=== PATIENT | male | born 1965 | race Caucasian/White ===

== ENCOUNTER 2022-05-26 11:13 | Outpatient (CLI) | payer MEDICARE, MEDICAID, SELFPAY | END 2022-05-26 11:14 | disposition home or self-care (01) | LOC: AMB 06-19 11:40 | PROVIDERS: PCP Family Medicine; Visit Provider Family Medicine | DX: R50.9 Fever, unspecified (principal); R52 Pain, unspecified | CPT/HCPCS: A0998 ==

== ENCOUNTER 2022-05-26 15:08 | Outpatient (CLI) | payer MEDICARE, MEDICAID, SELFPAY | END 2022-05-26 15:09 | disposition home or self-care (01) | PROVIDERS: PCP Family Medicine; Visit Provider Family Medicine | DX: R50.9 Fever, unspecified (principal) | CPT/HCPCS: A0425; A0429; A0998 ==

== ENCOUNTER 2022-05-26 15:29 | Inpatient (IN) | payer MEDICARE, MEDICAID, SELFPAY ==
[2022-05-26] VITALS (15 sets, daily range): BP systolic 103–135; BP diastolic 59–84; PULSE 98–136; RESP 12–24; TEMP 37.6–39.2; O2SAT 88–96; BMI 55.6; BMI 56.1
--- NOTE | 2022-05-26 16:03 | ED.GENADULT ---
HPI - General Adult General Time Seen by Provider: 16:04 Date Seen: 05/26/22 Chief complaint: Fever Stated complaint: FEVER Time Seen by Provider: 05/26/22 15:42 Source: patient Mode of arrival: EMS Limitations: no limitations History of Present Illness HPI narrative: This 57-year-old male is a well-known patient to us coming in with fever today. Vi notes that he woke up this morning feeling extremely chilled, checked his temperature later and it was in the low 103 range. Did take some Tylenol around 11. Did have the EMT come check him and initially did not come in but later did. He started feeling really hot early afternoon and recheck his temperature and it was 104.1. He notes that he did choke on some peanut scans. It was not a Pean it but it was actually the skin. He is chronically trached and he did put saline in his trach and rinse it. He is not coughing, not short of breath. He notes he was on antibiotics about a week and a half ago for UTI a with his urine showing greater than 100,000 of some type of bacteria. He does feel his urine might be cloudy. No sore throat, no abdominal pain, no nausea vomiting, no diarrhea. He is not noting any respiratory symptoms at this time. It is not aware of any definite ill contacts but did go to [facility]. He has felt weak today with these symptoms. Vi does have a history of congestive heart failure. MD complaint: Fever and weakness Related Data Home Medications Medication Instructions Recorded Confirmed cyanocobalamin (vitamin B-12) 1,000 mcg IM Q4W 05/26/22 05/26/22 1,000 mcg/mL injection solution fluticasone propionate 50 2 spray intranasal DAILY 05/26/22 05/26/22 mcg/actuation nasal spray,suspension lamotrigine 200 mg tablet 200 mg PO HS 05/26/22 05/26/22 metronidazole 0.75 % topical cream 1 applic topical BID 05/26/22 05/27/22 morphine 30 mg immediate release 30 mg PO Q6H PRN 05/26/22 05/26/22 tablet nystatin 100,000 unit/gram topical 1 applic topical BID 05/26/22 05/26/22 cream pregabalin 75 mg capsule 75 mg PO BID 05/26/22 05/26/22 quetiapine 100 mg tablet 200 mg PO HS 05/26/22 05/26/22 sertraline 50 mg tablet 150 mg PO DAILY 05/26/22 05/26/22 tizanidine 2 mg tablet 2 - 4 mg PO Q8H PRN 05/26/22 05/26/22 trazodone 100 mg tablet 200 mg PO HS 05/26/22 05/26/22 ciprofloxacin 0.3 %-dexamethasone See Rx Instructions .Route .COMPLEX 05/27/22 05/27/22 0.1 % ear drops,suspension ondansetron 4 mg disintegrating 4 mg PO Q8H PRN 05/27/22 05/27/22 tablet Allergies Allergy/AdvReac Type Severity Reaction Status Date / Time latex Allergy Verified 05/26/22 15:41 aspirin AdvReac Verified 05/26/22 15:41 codeine AdvReac Verified 05/26/22 15:41 Review of Systems Status of ROS: Reports: 10 or more systems reviewed and unremarkable except as noted in History and below [facility] Medical History Anemia Bipolar disorder Borderline personality disorder in adult Chronic idiopathic thrombocytopenia Chronic idiopathic thrombocytopenia Chronic pain Chronic pain syndrome CVA (cerebral vascular accident) Diabetes Fever History of deep venous thrombosis or pulmonary embolus History of suicide attempt Iron deficiency anemia following bariatric surgery Migraine Migraines Obesity RAPHAEL (obstructive sleep apnea) Pulmonary embolism Suprapubic catheter Surgical History Gastric bypass status for obesity History of cholecystectomy History of lumbar surgery History of total right knee replacement (TKR) S/P ACL repair Family History Other Chronic idiopathic thrombocytopenia Social History Smoking Status: Former smoker What tobacco products do you use: cigarettes Years smoked: 10 Smoking quit date/years: <= 15 years ago Do you use any of these nicotine containing products: None Second hand tobacco smoke exposure: No How often do you have a drink containing alcohol: 2-4 times a month How many standard drinks containing alcohol do you have on a typical day: 1 or 2 How often do you have six or more drinks on one occasion: Never AUDIT-C Alcohol total score: 2 Non-prescribed substance use: denies use Caffeine: Yes (coffee) service: No Exam Const: Vital Signs, click to edit/add: Vital Signs - 24 hr 05/26/22 15:41 05/26/22 15:53 05/26/22 17:18 Temperature 99.7 F H Pulse Rate [Apical ] 113 H Respiratory Rate 22 Blood Pressure [Ri ght Forearm] 109/59 L Pulse Oximetry 94 94 93 Oxygen Delivery Me thod Room Air Room Air 05/26/22 15:40 05/26/22 16:00 05/26/22 17:00 Temperature Pulse Rate [Apical ] 111 H 114 H 107 H Respiratory Rate 14 15 Blood Pressure [Ri ght Forearm] 109/59 L 105/74 Pulse Oximetry 93 93 Oxygen Delivery Me thod Room Air Room Air 05/26/22 17:30 05/26/22 18:00 05/26/22 18:30 Temperature Pulse Rate [Apical ] 105 H 107 H 107 H Respiratory Rate 15 Blood Pressure [Ri ght Forearm] 103/71 104/69 107/73 Pulse Oximetry 93 92 93 Oxygen Delivery Me thod Room Air Room Air Room Air 05/26/22 19:00 Temperature Pulse Rate [Apical ] 100 Respiratory Rate 12 Blood Pressure [Ri ght Forearm] 128/76 Pulse Oximetry 94 Oxygen Delivery Me thod Room Air Documenting provider has reviewed patient's vital signs: yes Common normals: no apparent distress, oriented x3, no limitations, healthy appearing, alert and well nourished General appearance: cooperative, comfortable and well kempt Nutritional appearance: obese HENMT: Common normals: normocephalic, head/scalp atraumatic, hearing grossly normal bilaterally, external ears normal, EAC's normal, nasal mucous membranes and turbinates normal, moist oral mucous membranes, oropharynx normal, dentition normal and gingiva normal Head and scalp: normocephalic and atraumatic Nose: nasal mucous membranes and turbinates normal External ear: external ears normal External auditory canal: EAC's normal Eye: Common normals: PERRL, EOMs intact bilaterally, conjunctivae normal and no scleral icterus Conjunctiva: conjunctiva(e) normal Pupil: PERRL Neck & C-Spine: Common normals: full ROM, no lymphadenopathy, supple, no meningeal signs, no JVD and thyroid normal Thyroid: thyroid normal Other: Trach is in place, no sputum production, site without any evidence of infection. Chest: Common normals: inspection of chest normal and palpation of chest normal Resp: Common normals: normal respiratory effort, no retractions, no use of accessory muscles and clear to auscultation bilaterally Auscultation: clear to auscultation bilaterally Cardio: Common normals: no JVD, regular rhythm, S1 normal heart sound, S2 normal heart sound, no gallops, no clicks, no murmurs and no rub Rate: tachycardic Rhythm: regular rhythm Heart sounds: S1 normal and S2 normal GI: Common normals: Normal to inspection, nondistended, normoactive bowel sounds present, soft to palpation and non-tender Palpation: soft Other: Abdomen certainly is not tender, he does have a suprapubic catheter. Body habitus precludes any definite ability for palpating masses or organomegaly. 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 Chronic edema that looks baseline to me from my previous interactions with him. Neuro: Common normals: oriented x3, CN's II-XII intact bilaterally, moves all extremities, no focal motor deficits and no sensory deficits noted Sensorium/orientation: alert Meningeal signs: no meningeal signs Psych: Appearance: well kempt Course Course Hospital Course: We need to work up this patient for infection. We will do blood cultures. He is mildly tachycardic, will need to look back at prior vitals to see what his baseline has been most recently. He actually is alert and quite conversive. He looks well. We will get a chest x-ray to start, will do screening COVID and influenza as well. Given his history of fluid overload, will do fluids very carefully. Will give him a 250 mL normal saline bolus to start and will obtain a baseline proBNP. Right now respiratory verses urinary arm I most likely etiologies for fever. Certainly COVID is always a possibility. Reevaluation(s) Reevaluation #1: Patient was re-evaluated, tolerated the initial 250 mL bolus just fine, blood pressure does continue to stay around systolic 107 when I was in there but his heart rate is coming down. In review of his old records, in November his blood pressure was 1 17-137 range, pulse in the 80s. He was able to pull up his my chart and on May 02 he had a urine culture growing Enterococcus faecalis. I cannot see the sensitivities but I can see that his doctor did place him on amoxicillin which he states he took for a week. Urine definitely looks like it could be a source of infection, I am going to give him IV Rocephin and initiate another 250 mL fluid bolus of normal saline. Given his reported fevers, his change in his vital signs on arrival here, do feel it is prudent to place him in the hospital on observation. I will talk to the hospitalist once I have all of his labs back. Time: 18:47 Reevaluation #2: Have spoken with Dr. Zhao our hospitalist. He agrees to assume care. Time: 18:53 Vital Signs Vital signs: Initial Vital Signs Pulse Rate 111 H 05/26/22 15:40 Pulse Rhythm 05/26/22 15:40 Respiratory Rate 14 05/26/22 15:40 Respiratory Effort Spontaneous 05/26/22 15:40 Respiratory Depth Normal 05/26/22 15:40 Respiratory Pattern 05/26/22 15:40 Blood Pressure 109/59 L 05/26/22 15:40 Blood Pressure Mean 75 05/26/22 15:40 Blood Pressure Position Supine 05/26/22 15:40 Pulse Oximetry 93 05/26/22 15:40 Oxygen Delivery Method 05/26/22 15:40 Vital Signs Pulse Rate 111 H 05/26/22 15:40 Respiratory Rate 14 05/26/22 15:40 Blood Pressure 109/59 L 05/26/22 15:40 Pulse Oximetry 93 05/26/22 15:40 Oxygen Delivery Method 05/26/22 15:40 Temperature 98.5 F 05/29/22 07:00 Pulse Rate 98 05/29/22 07:00 Respiratory Rate 20 05/29/22 07:00 Blood Pressure 139/74 05/29/22 07:00 Pulse Oximetry 98 05/29/22 07:00 Oxygen Delivery Method 05/29/22 07:00 Oxygen Flow Rate 3 05/29/22 03:00 Medical Decision Making Lab Data Lab results reviewed: Yes I reviewed the patient's lab results Labs: Lab Results 05/26/22 05/26/22 05/26/22 Range/Units 16:45 16:55 17:10 WBC 7.66 (4.50-11.00) K/uL RBC 4.56 (4.30-5.90) m/uL Hgb 10.1 L (13.5-17.5) gm/dL Hct 33.5 L (37.0-53.0) % MCV 74 L (80-100) fL MCH 22 L (26-34) pg MCHC 30 L (32-36) gm/dL RDW Coeff of Verenice 18.3 H (11.5-15.5) % Plt Count 86 L (140-440) K/uL Neut % (Auto) 81.2 H (42.0-72.0) % Lymph % (Auto) 7.3 L (20-44) % [place] % (Auto) 10.2 (0.0-11.0) % Eos % (Auto) 0.5 (0.0-7.0) % Baso % (Auto) 0.3 (0.0-3.0) % Neut # (Auto) 6.20 (1.7-7.0) K/uL Lymph # (Auto) 0.60 L (0.90-2.90) K/uL [place] # (Auto) 0.80 (0.00-0.90) K/UL Eos # (Auto) 0.04 (0.00-0.50) K/uL Baso # (Auto) 0.02 (0.00-0.30) K/uL Abs Immat Gran (auto) 0.04 (0.00-0.30) K/uL Diff Slide Review (Acceptable) ESR (2-15) mm/hr INR (0.91-1.10) Sodium (135-149) mmol/L Potassium (3.6-5.1) mmol/L Chloride (96-114) mmol/L Carbon Dioxide (20-32) mmol/L BUN (7-30) mg/dL Creatinine (0.5-1.5) mg/dL Estimated Creat Clear Estimated GFR ml/min Glucose (60-115) mg/dL Lactate (0.5-1.9) mmol/L Calcium (8.4-10.6) mg/dL Magnesium (1.5-2.6) mg/dL Total Bilirubin (0.1-1.5) mg/dL AST (12-35) U/L ALT (4-50) U/L Alkaline Phosphatase (40-150) U/L C-Reactive Protein (0.5-1.0) mg/dL NT-Pro-B Natriuret Pep (0-125) PG/mL Total Protein (6.0-8.3) g/dL Albumin (3.3-5.0) g/dL Procalcitonin (<0.50) ng/mL Urine Color Yellow (Yellow) Urine Appearance Cloudy A (Clear) Urine pH 6.0 (5.0-8.5) Ur Specific [place] 1.010 (1.000-1.030) Urine Protein 1+ A (Negative) Urine Glucose (UA) Negative (Negative) Urine Ketones Negative (Negative) Urine Blood 2+ A (Negative) Urine Nitrite Positive A (Negative) Urine Bilirubin Negative (Negative) Urine Urobilinogen 1.0 (0.2-1.0) Ur Leukocyte Esterase 3+ A (Negative) Urine RBC 10-25 A (0-2) Urine WBC >100 A (0-5) Ur Squamous Epith Cells None (None-Few) Amorphous Sediment Few A (None) Other Sediment MANY YEAST (None) Urine Bacteria Many A (None) Urine Yeast Many A (None) SARS-CoV-2 (PCR) Negative SARS-CoV-2 (Negative) Influenza Type A (PCR) Negative PCR FLU A (Negative) Influenza Type B (PCR) Negative PCR FLU B (Negative) 05/26/22 05/26/22 05/26/22 Range/Units 17:10 17:10 17:10 WBC (4.50-11.00) K/uL RBC (4.30-5.90) m/uL Hgb (13.5-17.5) gm/dL Hct (37.0-53.0) % MCV (80-100) fL MCH (26-34) pg MCHC (32-36) gm/dL RDW Coeff of Verenice (11.5-15.5) % Plt Count (140-440) K/uL Neut % (Auto) (42.0-72.0) % Lymph % (Auto) (20-44) % [place] % (Auto) (0.0-11.0) % Eos % (Auto) (0.0-7.0) % Baso % (Auto) (0.0-3.0) % Neut # (Auto) (1.7-7.0) K/uL Lymph # (Auto) (0.90-2.90) K/uL [place] # (Auto) (0.00-0.90) K/UL Eos # (Auto) (0.00-0.50) K/uL Baso # (Auto) (0.00-0.30) K/uL Abs Immat Gran (auto) (0.00-0.30) K/uL Diff Slide Review (Acceptable) ESR 29 H (2-15) mm/hr INR 1.26 H (0.91-1.10) Sodium 136 (135-149) mmol/L Potassium 3.6 (3.6-5.1) mmol/L Chloride 104 (96-114) mmol/L Carbon Dioxide 24 (20-32) mmol/L BUN 9 (7-30) mg/dL Creatinine 0.7 (0.5-1.5) mg/dL Estimated Creat Clear 129.33 Estimated GFR 108 ml/min Glucose 213 H (60-115) mg/dL Lactate (0.5-1.9) mmol/L Calcium 8.6 (8.4-10.6) mg/dL Magnesium (1.5-2.6) mg/dL Total Bilirubin 0.5 (0.1-1.5) mg/dL AST 38 H (12-35) U/L ALT 29 (4-50) U/L Alkaline Phosphatase 129 (40-150) U/L C-Reactive Protein 2.9 H (0.5-1.0) mg/dL NT-Pro-B Natriuret Pep (0-125) PG/mL Total Protein 6.9 (6.0-8.3) g/dL Albumin 3.5 (3.3-5.0) g/dL Procalcitonin (<0.50) ng/mL Urine Color (Yellow) Urine Appearance (Clear) Urine pH (5.0-8.5) Ur Specific [place] (1.000-1.030) Urine Protein (Negative) Urine Glucose (UA) (Negative) Urine Ketones (Negative) Urine Blood (Negative) Urine Nitrite (Negative) Urine Bilirubin (Negative) Urine Urobilinogen (0.2-1.0) Ur Leukocyte Esterase (Negative) Urine RBC (0-2) Urine WBC (0-5) Ur Squamous Epith Cells (None-Few) Amorphous Sediment (None) Other Sediment (None) Urine Bacteria (None) Urine Yeast (None) SARS-CoV-2 (PCR) (Negative) Influenza Type A (PCR) (Negative) Influenza Type B (PCR) (Negative) 05/26/22 05/26/22 05/27/22 Range/Units 17:10 17:10 06:15 WBC 9.32 (4.50-11.00) K/uL RBC 4.10 L (4.30-5.90) m/uL Hgb 9.1 L (13.5-17.5) gm/dL Hct 30.9 L (37.0-53.0) % MCV 75 L (80-100) fL MCH 22 L (26-34) pg MCHC 29 L (32-36) gm/dL RDW Coeff of Verenice 18.4 H (11.5-15.5) % Plt Count 71 L (140-440) K/uL Neut % (Auto) 83.5 H (42.0-72.0) % Lymph % (Auto) 4.2 L (20-44) % [place] % (Auto) 11.8 H (0.0-11.0) % Eos % (Auto) 0.1 (0.0-7.0) % Baso % (Auto) 0.1 (0.0-3.0) % Neut # (Auto) 7.80 H (1.7-7.0) K/uL Lymph # (Auto) 0.40 L (0.90-2.90) K/uL [place] # (Auto) 1.10 H (0.00-0.90) K/UL Eos # (Auto) 0.01 (0.00-0.50) K/uL Baso # (Auto) 0.01 (0.00-0.30) K/uL Abs Immat Gran (auto) 0.03 (0.00-0.30) K/uL Diff Slide Review Acceptable Review (Acceptable) ESR (2-15) mm/hr INR (0.91-1.10) Sodium (135-149) mmol/L Potassium (3.6-5.1) mmol/L Chloride (96-114) mmol/L Carbon Dioxide (20-32) mmol/L BUN (7-30) mg/dL Creatinine (0.5-1.5) mg/dL Estimated Creat Clear Estimated GFR ml/min Glucose (60-115) mg/dL Lactate 1.9 (0.5-1.9) mmol/L Calcium (8.4-10.6) mg/dL Magnesium (1.5-2.6) mg/dL Total Bilirubin (0.1-1.5) mg/dL AST (12-35) U/L ALT (4-50) U/L Alkaline Phosphatase (40-150) U/L C-Reactive Protein (0.5-1.0) mg/dL NT-Pro-B Natriuret Pep 135 H (0-125) PG/mL Total Protein (6.0-8.3) g/dL Albumin (3.3-5.0) g/dL Procalcitonin 2.71 H (<0.50) ng/mL Urine Color (Yellow) Urine Appearance (Clear) Urine pH (5.0-8.5) Ur Specific [place] (1.000-1.030) Urine Protein (Negative) Urine Glucose (UA) (Negative) Urine Ketones (Negative) Urine Blood (Negative) Urine Nitrite (Negative) Urine Bilirubin (Negative) Urine Urobilinogen (0.2-1.0) Ur Leukocyte Esterase (Negative) Urine RBC (0-2) Urine WBC (0-5) Ur Squamous Epith Cells (None-Few) Amorphous Sediment (None) Other Sediment (None) Urine Bacteria (None) Urine Yeast (None) SARS-CoV-2 (PCR) (Negative) Influenza Type A (PCR) (Negative) Influenza Type B (PCR) (Negative) 05/27/22 Range/Units 06:15 WBC (4.50-11.00) K/uL RBC (4.30-5.90) m/uL Hgb (13.5-17.5) gm/dL Hct (37.0-53.0) % MCV (80-100) fL MCH (26-34) pg MCHC (32-36) gm/dL RDW Coeff of Verenice (11.5-15.5) % Plt Count (140-440) K/uL Neut % (Auto) (42.0-72.0) % Lymph % (Auto) (20-44) % [place] % (Auto) (0.0-11.0) % Eos % (Auto) (0.0-7.0) % Baso % (Auto) (0.0-3.0) % Neut # (Auto) (1.7-7.0) K/uL Lymph # (Auto) (0.90-2.90) K/uL [place] # (Auto) (0.00-0.90) K/UL Eos # (Auto) (0.00-0.50) K/uL Baso # (Auto) (0.00-0.30) K/uL Abs Immat Gran (auto) (0.00-0.30) K/uL Diff Slide Review (Acceptable) ESR (2-15) mm/hr INR (0.91-1.10) Sodium 136 (135-149) mmol/L Potassium 3.5 L (3.6-5.1) mmol/L Chloride 105 (96-114) mmol/L Carbon Dioxide 23 (20-32) mmol/L BUN 12 (7-30) mg/dL Creatinine 1.2 (0.5-1.5) mg/dL Estimated Creat Clear 73.21 Estimated GFR 71 ml/min Glucose 190 H (60-115) mg/dL Lactate (0.5-1.9) mmol/L Calcium 7.7 L (8.4-10.6) mg/dL Magnesium 1.6 (1.5-2.6) mg/dL Total Bilirubin (0.1-1.5) mg/dL AST (12-35) U/L ALT (4-50) U/L Alkaline Phosphatase (40-150) U/L C-Reactive Protein 5.5 H (0.5-1.0) mg/dL NT-Pro-B Natriuret Pep (0-125) PG/mL Total Protein (6.0-8.3) g/dL Albumin (3.3-5.0) g/dL Procalcitonin 13.40 H (<0.50) ng/mL Urine Color (Yellow) Urine Appearance (Clear) Urine pH (5.0-8.5) Ur Specific [place] (1.000-1.030) Urine Protein (Negative) Urine Glucose (UA) (Negative) Urine Ketones (Negative) Urine Blood (Negative) Urine Nitrite (Negative) Urine Bilirubin (Negative) Urine Urobilinogen (0.2-1.0) Ur Leukocyte Esterase (Negative) Urine RBC (0-2) Urine WBC (0-5) Ur Squamous Epith Cells (None-Few) Amorphous Sediment (None) Other Sediment (None) Urine Bacteria (None) Urine Yeast (None) SARS-CoV-2 (PCR) (Negative) Influenza Type A (PCR) (Negative) Influenza Type B (PCR) (Negative) Imaging Data Chest x-ray: Attestation: I have reviewed the pertinent imaging results. Radiologist's impression: Patient: GETACHEW GIBBS Facility:?[facility] Patient ID:?[id number] Site Patient ID:?[id number]. Site :?[id number] Study:?XRay Chest 2 VIEW-05/26/2022 4:37:12 PM Ordering Physician:Claudia Willoughby Final Report: INDICATION: Fever, question aspiration. TECHNIQUE: AP and lateral chest. COMPARISON: 11/17/2021. FINDINGS: Shallow inspiration. Tracheostomy tube and Port-A-Cath in place. Lungs grossly clear. No significant change since prior exam. No specific evidence for aspiration. Dictated by Zia Diaz MD @ 05/26/2022 5:14:57 PM Dictated by: Zia Diaz MD @ 05/26/2022 17:15:01 (Electronic Signature) ECG Data Attestation: I personally reviewed and interpreted this ECG as follows: (Sinus tachycardia, 113 beats per minute. No acute ischemic change noted.) Prior ECG tracings: not available for review Critical Care Time Critical Care Time Critical Care Time: No Discharge Plan Discharge Clinical Impression: Chronic suprapubic catheter, Fever, Sinus tachycardia, Acute UTI Patient Disposition: Admitted As Inpatient Condition: Improved
--- NOTE | 2022-05-26 16:16 | CRLHL7_ITS ---
For Patients: As a result of the Cures Act, medical imaging exams and procedure reports are released immediately into your electronic medical record. You may view this report before your referring provider. If you have questions, please contact your health care provider. INDICATION: Fever, question aspiration. TECHNIQUE: AP and lateral chest. COMPARISON: 11/17/2021. FINDINGS: Shallow inspiration. Tracheostomy tube and Port-A-Cath in place. Lungs grossly clear. No significant change since prior exam. No specific evidence for aspiration. Dictated by Zia Diaz MD @ 05/26/2022 5:14:57 PM Dictated by: Zia Diaz MD @ 05/26/2022 17:15:01 (Electronically Signed)
[2022-05-26 17:02] LABS: Appearance Urine Cloudy (Clear); Bilirubin Urine Negative (Negative); Blood Urine 2+ (Negative); Color Urine Yellow (Yellow); Glucose Urine Negative (Negative); Ketones Urine Negative (Negative); Leukocyte Esterase Urine 3+ (Negative); Nitrite Urine Positive (Negative); Protein Urine 1+ (Negative)
[2022-05-26] MEDS: 0.9 % SODIUM CHLORIDE 250 ml 250 ML IV ×2 (17:14→19:06)
[2022-05-26 17:20] LABS: Lactate* 1.9 mmol/L (0.5-1.9)
[2022-05-26 17:26] LABS: WBC Urine >100 (0-5)
[2022-05-26 17:27] LABS: Amorphous Sediment Urine Few; Bacteria Urine Many; Other Sediment Urine MANY YEAST
[2022-05-26 17:35] LABS: Basophils Absolute Auto 0.02 K/uL (0.00-0.30); Basophils Percent Auto 0.3 % (0.0-3.0); Eosinophils Absolute Auto 0.04 K/uL (0.00-0.50); Eosinophils Percent Auto 0.5 % (0.0-7.0); Hematocrit 33.5 % (37.0-53.0); Hemoglobin* 10.1 gm/dL (13.5-17.5); Immature Granulocytes Abs Auto 0.04 K/uL (0.00-0.30); Lymphocytes Percent Auto 7.3 % (20-44); Mean Corpuscular HGB Conc 30 gm/dL (32-36); Mean Corpuscular Hemoglobin 22 pg (26-34); Mean Corpuscular Volume 74 fL (80-100); Monocytes Percent Auto 10.2 % (0.0-11.0); Neutrophils Percent Auto 81.2 % (42.0-72.0); Platelet Count* 86 K/uL (140-440); RDW Coefficient of Variation % 18.3 % (11.5-15.5); Red Blood Count 4.56 m/uL (4.30-5.90); White Blood Count* 7.66 K/uL (4.50-11.00)
[2022-05-26 17:35] LABS: PCR FLU A Negative PCR FLU A (Negative); PCR FLU B Negative PCR FLU B (Negative)
[2022-05-26 17:38] LABS: SARS PCR* Negative SARS-CoV-2 (Negative)
[2022-05-26 17:38] LABS: Slide Review Reflex No
[2022-05-26 17:41] LABS: Albumin* 3.5 g/dL (3.3-5.0); Chloride* 104 mmol/L (96-114); Sodium* 136 mmol/L (135-149)
[2022-05-26 17:42] LABS: INR 1.26 (0.91-1.10); Potassium* 3.6 mmol/L (3.6-5.1); Prothrombin Time 16.3 Seconds
[2022-05-26 17:45] LABS: Alanine Aminotransferase* 29 U/L (4-50); Alkaline Phosphatase* 129 U/L (40-150); Aspartate Amino Transferase* 38 U/L (12-35); Bilirubin Total* 0.5 mg/dL (0.1-1.5); Blood Urea Nitrogen* 9 mg/dL (7-30); Calcium* 8.6 mg/dL (8.4-10.6); Carbon Dioxide* 24 mmol/L (20-32); Creatinine* 0.7 mg/dL (0.5-1.5); Est. Creatinine Clearance* 129.33; Estimated Glomerular Filt Rate 108 ml/min; Glucose* 213 mg/dL (60-115); Total Protein* 6.9 g/dL (6.0-8.3)
[2022-05-26 17:47] LABS: C Reactive Protein* 2.9 mg/dL (0.5-1.0)
[2022-05-26] MEDS: MORPHINE 30 MG TABLET.ER PO (17:52)
[2022-05-26 17:54] LABS: NT Pro B Type NatriureticPept* 135 PG/mL (0-125)
[2022-05-26 18:02] LABS: Procalcitonin* 2.71 ng/mL (<0.50)
[2022-05-26 18:26] LABS: Erythrocyte SedimentationRate* 29 mm/hr (2-15)
[2022-05-26] MEDS: cefTRIAXone 2 GM in 0.9 % SODIUM CHLORIDE Mini-bag 100 ML IVPB (19:03)
--- NOTE | 2022-05-26 19:47 | ED.NURSE ---
pt requesting to talk to MD about admission, MD Estrada in with pt to talk. pt states he agrees to admission.
[2022-05-26] MEDS: ACETAMINOPHEN 500 MG TABLET 1000 MG PO ×2 (20:07→23:22)
--- NOTE | 2022-05-26 20:20 | ED.NURSE ---
report to media production support manager. pt to [facility]
--- NOTE | 2022-05-26 20:52 | P.IMHP_ITS ---
Hospitalist- H&P: HPI History of Present Illness Date Seen: 05/26/22 Chief complaint: FEVER Narrative: Gerson Perez III is a 57 year old male who had a minor coughing episode 2 days ago on the husk on a chocolate covered peanut that he bought at the [employer]. 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 No further problems unti the patient began feeling chilled this morning. He got temperatures between 101.5 and 102 at home. No chest pain, sob, cough, rash, abd pain, or change in his suprapubic catheter outpt. Pt had a UTI treated as an outpt approximately 2-3 weeks ago which was treated wtih amoxicillin. Pt presented to the ED where his pulse was initially 111 with a tempurature of 99.7. Pt was found to have a negative COVID test, negative chest x ray, WBC of 7.66 with Hgb of 10.1 and Plts of 86. Electrolytes were largely unremarkable with CRP of 2.9, BNP of 137 and Procalcitonin of 2.71. UA collected via catheter which was changed 17 days ago showed signs of infection. Blood and urine cultures were collected. Pt given normal saline, Rocephin and Tylenol and now feels fine. No further symptoms. Admitted to make sure that fever subsides and no further symptoms occur. Review of Systems Status of ROS: Reports: 10 or more systems reviewed and unremarkable except as noted in History and below [facility] Medical History (Updated 05/26/22 @ 21:22 by Hosea Zhao MD) Anemia Bipolar disorder Borderline personality disorder in adult Chronic idiopathic thrombocytopenia Chronic idiopathic thrombocytopenia Chronic pain Chronic pain syndrome CVA (cerebral vascular accident) Diabetes Fever History of deep venous thrombosis or pulmonary embolus History of suicide attempt Iron deficiency anemia following bariatric surgery Migraine Migraines Obesity RAPHAEL (obstructive sleep apnea) Pulmonary embolism Suprapubic catheter Surgical History (Updated 05/26/22 @ 21:10 by Hosea Zhao MD) Gastric bypass status for obesity History of cholecystectomy History of lumbar surgery History of total right knee replacement (TKR) S/P ACL repair Social History Smoking Status: Former smoker What tobacco products do you use: cigarettes Years smoked: 10 Smoking quit date/years: <= 15 years ago Do you use any of these nicotine containing products: None Second hand tobacco smoke exposure: No How often do you have a drink containing alcohol: 2-4 times a month How many standard drinks containing alcohol do you have on a typical day: 1 or 2 How often do you have six or more drinks on one occasion: Never AUDIT-C Alcohol total score: 2 Non-prescribed substance use: denies use service: No Meds Home Medications and Allergies Home Medications Medication Instructions Recorded Confirmed Type cyanocobalamin (vitamin B-12) 1,000 mcg IM Q4W 05/26/22 05/26/22 History 1,000 mcg/mL injection solution fluticasone propionate 50 2 spray intranasal DAILY 05/26/22 05/26/22 History mcg/actuation nasal spray,suspension lamotrigine 200 mg tablet 200 mg PO HS 05/26/22 05/26/22 History metronidazole 0.75 % topical cream applic topical BID 05/26/22 History morphine 30 mg immediate release 30 mg PO Q6H PRN 05/26/22 05/26/22 History tablet nystatin 100,000 unit/gram topical 1 applic topical BID 05/26/22 05/26/22 History cream pregabalin 75 mg capsule 75 mg PO BID 05/26/22 05/26/22 History quetiapine 100 mg tablet 200 mg PO HS 05/26/22 05/26/22 History sertraline 50 mg tablet 150 mg PO DAILY 05/26/22 05/26/22 History tizanidine 2 mg tablet 2 - 4 mg PO Q8H PRN 05/26/22 05/26/22 History trazodone 100 mg tablet 200 mg PO HS 05/26/22 05/26/22 History Allergies Allergy/AdvReac Type Severity Reaction Status Date / Time latex Allergy Verified 05/26/22 15:41 aspirin AdvReac Verified 05/26/22 15:41 codeine AdvReac Verified 05/26/22 15:41 Exam Narrative: Exam Narrative: EXAM GENERAL: Patient appears comfortable and well although obese with a tracheostomy EYES: No scleral icterus. THYROID: no thyroid nodules or thyromegaly. LYMPH: No supraclavicular or cervical lymphadenopathy. SKIN: Visible skin seen during exam normal or with benign process only. EXT: No dependent lower extremity pedal edema. HEART: Regular rate and rhythm with no murmurs, rubs, or gallops. LUNGS: Clear to auscultation bilaterally with no crackles or wheezes. ABD: Soft, non tender, non distended. Suprapubic catheter in place. PSYCH: Good eye contact, speech is not pressured. Const: Vital Signs, click to edit/add: Vital Signs - 24 hr 05/26/22 15:41 05/26/22 15:53 05/26/22 17:18 Temperature 99.7 F H Pulse Rate [Apical ] 113 H Respiratory Rate 22 Blood Pressure [Ri ght Forearm] 109/59 L Pulse Oximetry 94 94 93 Oxygen Delivery Me thod Room Air Room Air 05/26/22 15:40 05/26/22 16:00 05/26/22 17:00 Temperature Pulse Rate [Apical ] 111 H 114 H 107 H Respiratory Rate 14 15 Blood Pressure [Ri ght Forearm] 109/59 L 105/74 Pulse Oximetry 93 93 Oxygen Delivery Ca thod Room Air Room Air 05/26/22 17:30 05/26/22 18:00 05/26/22 18:30 Temperature Pulse Rate [Apical ] 105 H 107 H 107 H Respiratory Rate 15 Blood Pressure [Ri ght Forearm] 103/71 104/69 107/73 Pulse Oximetry 93 92 93 Oxygen Delivery Ca thod Room Air Room Air Room Air 05/26/22 19:00 05/26/22 20:00 Temperature Pulse Rate [Apical ] 100 98 Respiratory Rate 12 12 Blood Pressure [Ri ght Forearm] 128/76 124/84 Pulse Oximetry 94 96 Oxygen Delivery Ca thod Room Air Room Air Hospitalist - H&P: Result Labs Labs: Short CBC 05/26/22 Range/Units 17:10 WBC 7.66 (4.50-11.00) K/uL Hgb 10.1 L (13.5-17.5) gm/dL Hct 33.5 L (37.0-53.0) % Plt Count 86 L (140-440) K/uL BMP 05/26/22 17:10 Sodium 136 Potassium 3.6 Chloride 104 Carbon Dioxide 24 BUN 9 Creatinine 0.7 Glucose 213 H Calcium 8.6 Liver Function 05/26/22 Range/Units 17:10 Total Bilirubin 0.5 (0.1-1.5) mg/dL AST 38 H (12-35) U/L ALT 29 (4-50) U/L Alkaline Phosphatase 129 (40-150) U/L Albumin 3.5 (3.3-5.0) g/dL Urine 05/26/22 Range/Units 16:55 Urine Color Yellow (Yellow) Urine Appearance Cloudy A (Clear) Urine pH 6.0 (5.0-8.5) Ur Specific [place] 1.010 (1.000-1.030) Urine Protein 1+ A (Negative) Urine Glucose (UA) Negative (Negative) Assessment and Plan Assessment and plan (1) Fever: Status: Acute Assessment and Plan: Pt's urine and blood cultures are pending. Suprapubic catheter has been changed out. Will continue Rocephin. Pt asymptomatic currently. Will repeat CRP, Procalcitonin, CBC, BMP in am. Likely source is urine as the chest x ray is normal and he has no further symptoms. COVID negative. (2) Bipolar disorder: Status: Chronic Assessment and Plan: Will continue outpt regiment (3) Chronic pain: Status: Chronic Assessment and Plan: Will continue outpt regiment (4) RAPHAEL (obstructive sleep apnea): Status: Chronic Assessment and Plan: Pt has a chronic tracheostomy which does not appear infected in the least. Pt uses a trilogy ventilator typically at home but often goes without. No one can bring in his device tonight. Will place on oxymetry and tele. RT to consult if he stays longer than the morning. (5) Pulmonary embolism: Problem comment: History of Status: Chronic Assessment and Plan: Pt's respiratory status is normal. He is now off anticoaglulation. Will holld on D dimer or CT of chest unless pt develops more symptoms. Also holding off troponin as long as pt is asymptomatic. (6) Chronic idiopathic thrombocytopenia: Status: Chronic Assessment and Plan: Chronic. Will repeat CBC in am. (7) Anemia: Status: Chronic Assessment and Plan: Chronic. Will repeat CBC in am. Plan Pt wth a fever at home. Normal workup in the ed. No asymptomatic with catheterized urine suspect. Catheter changed. Pt on Rocephin. Feeling fine. Cultures pending. Will continue outpt meds with am labs. Possible home in the morning. Full code.
--- NOTE | 2022-05-26 21:39 | CRLHL7_ITS ---
For Patients: As a result of the Cures Act, medical imaging exams and procedure reports are released immediately into your electronic medical record. You may view this report before your referring provider. If you have questions, please contact your health care provider. INDICATION: Fever and shortness of breath. TECHNIQUE: IV contrast-enhanced CT chest, pulmonary embolism protocol. 95 mL [id number] IV contrast injected. COMPARISON: 08/22/[address] FINDINGS: No pulmonary emboli. Tracheostomy tube in place well-positioned. Lungs clear except for mild left basilar atelectasis. No pleural or pericardial effusions. No thoracic lymphadenopathy. Coronary artery calcifications. Heart and great vessels otherwise unremarkable. The right Port-A-Cath has been removed since the prior exam. Spleen is enlarged measuring 18.3 cm, similar. IMPRESSION: 1. No acute findings including no pulmonary emboli. 2. Stable splenomegaly. 3. Tracheostomy tube in good position. Dictated by Zia Diaz MD @ 05/26/2022 11:34:26 PM Please note that all CT scans at this facility use dose modulation, iterative reconstruction, and/or weight-based dosing when appropriate to reduce radiation dose to as low as reasonably achievable. Dictated by: Zia Diaz MD @ 05/26/2022 23:34:29 (Electronically Signed)
[2022-05-26] MEDS: ONDANSETRON 2 MG/ML inj 4 MG IVP (22:35)
[2022-05-26] MEDS: PIPERACILLIN/TAZOBACTAM 3.375 GM in 0.9 % SODIUM CHLORIDE Mini-bag 100 ML IVPB (22:36)
[2022-05-26] MEDS: 0.9 % SODIUM CHLORIDE 1000 ml 1,000 ML IV (23:22)
[2022-05-26] MEDS: 0.9 % SODIUM CHLORIDE 1000 ml 1,000 ML 125 ML IV (23:48)
[2022-05-26] MEDS: QUETIAPINE 100 MG TABLET 200 MG PO (23:59)
[2022-05-26] MEDS: TRAZODONE HCL 50 MG TABLET 200 MG PO (23:59)
[2022-05-27] VITALS (10 sets, daily range): BP systolic 96–132; BP diastolic 58–72; PULSE 86–109; RESP 16–22; TEMP 36.2–37.7; O2SAT 90–95
[2022-05-27] MEDS: LORazepam 2 MG/ML inj 1 MG IVP (02:01)
[2022-05-27] MEDS: PIPERACILLIN/TAZOBACTAM 3.375 GM in 0.9 % SODIUM CHLORIDE Mini-bag 100 ML IVPB ×4 (04:28→21:43)
--- NOTE | 2022-05-27 05:40 | PC.NURSE ---
MD update: Positive blood cultures called to Alfie @ [id number].
[2022-05-27] MEDS: 0.9 % SODIUM CHLORIDE 1000 ml 1,000 ML 125 ML IV ×3 (06:18→21:43)
--- NOTE | 2022-05-27 06:41 | PC.NURSE ---
Patient admitted to unit at 2029. At admission patient Temp 99.8 and in good spirits. Suprapubic cath changed and patent. At 2129 Temp 102.5, patient shaking, N/V, chills, HR 136. MD updated and came in to see patient. See orders and eMar. Rates Chronic back pain 04/18. PRN Morphine administered for relief. 2Lt NC on overnight to maintain sats>90%. Tracheostomy in place and patient manages independently. Positive blood cultures. At end of shift Temp 98.5, HR 99, N/V subsided.
[2022-05-27 07:03] LABS: Basophils Absolute Auto 0.01 K/uL (0.00-0.30); Basophils Percent Auto 0.1 % (0.0-3.0); Eosinophils Absolute Auto 0.01 K/uL (0.00-0.50); Eosinophils Percent Auto 0.1 % (0.0-7.0); Hematocrit 30.9 % (37.0-53.0); Hemoglobin* 9.1 gm/dL (13.5-17.5); Immature Granulocytes Abs Auto 0.03 K/uL (0.00-0.30); Lymphocytes Percent Auto 4.2 % (20-44); Mean Corpuscular HGB Conc 29 gm/dL (32-36); Mean Corpuscular Hemoglobin 22 pg (26-34); Mean Corpuscular Volume 75 fL (80-100); Monocytes Percent Auto 11.8 % (0.0-11.0); Neutrophils Percent Auto 83.5 % (42.0-72.0); Platelet Count* 71 K/uL (140-440); RDW Coefficient of Variation % 18.4 % (11.5-15.5); White Blood Count* 9.32 K/uL (4.50-11.00)
[2022-05-27 07:09] LABS: Slide Review Reflex Yes
[2022-05-27 07:19] LABS: Chloride* 105 mmol/L (96-114); Sodium* 136 mmol/L (135-149)
[2022-05-27 07:20] LABS: Potassium* 3.5 mmol/L (3.6-5.1)
[2022-05-27 07:22] LABS: Creatinine* 1.2 mg/dL (0.5-1.5); Est. Creatinine Clearance* 73.21; Estimated Glomerular Filt Rate 71 ml/min
[2022-05-27 07:23] LABS: Blood Urea Nitrogen* 12 mg/dL (7-30); Carbon Dioxide* 23 mmol/L (20-32); Glucose* 190 mg/dL (60-115)
[2022-05-27 07:24] LABS: Calcium* 7.7 mg/dL (8.4-10.6)
[2022-05-27 07:26] LABS: C Reactive Protein* 5.5 mg/dL (0.5-1.0)
[2022-05-27 07:36] LABS: Slide Review Acceptable Review (Acceptable)
[2022-05-27 07:39] LABS: Magnesium* 1.6 mg/dL (1.5-2.6)
[2022-05-27] MEDS: SERTRALINE 50 MG TABLET 150 MG PO (08:39)
[2022-05-27] MEDS: PREGABALIN 75 MG CAPSULE PO ×3 (08:40→21:42)
[2022-05-27] MEDS: POTASSIUM BICARB 25 MEQ EFFERVESCENT TAB PO ×2 (08:40→10:18)
[2022-05-27] MEDS: ACETAMINOPHEN 500 MG TABLET 1000 MG PO (13:02)
[2022-05-27] MEDS: NYSTATIN CREAM 30 GM 1 APPLIC TOPICAL ×2 (13:07→21:01)
--- NOTE | 2022-05-27 13:32 | P.IMPN_ITS ---
Progress Note: A&P Assessment and plan (1) Sepsis: Problem details: Suspect secondary to urinary tract infection Status: Acute Assessment and Plan: This is not associated with low blood pressures or other evidence of organ dysfunction. Urinalysis is abnormal and consistent with infection. Urine culture is pending. He was started on Zosyn and vancomycin yesterday, no other source of infection. Continue Zosyn and stop vancomycin. Adjust antibiotic when urine culture is available. (2) Acute UTI: Problem details: Associated with suprapubic catheter Status: Acute (3) Fever: Status: Acute Assessment and Plan: Resolved now on antibiotics. (4) Sinus tachycardia: Status: Acute Assessment and Plan: This has improved with IV fluids and starting antibiotics. (5) Chronic suprapubic catheter: Status: Chronic Assessment and Plan: Catheter changed yesterday when antibiotics were started (6) Chronic idiopathic thrombocytopenia: Problem details: Plt 83 on 05/02/22 Status: Chronic Assessment and Plan: Continue to monitor daily. He has h/o PE/DVT, but has chosen to be off anticoagulation. (7) RAPHAEL (obstructive sleep apnea): Status: Chronic Assessment and Plan: Have RT assess. (8) Borderline personality disorder in adult: Status: Chronic Assessment and Plan: stable. continue psych meds. (9) Obesity: Status: Chronic (10) Chronic pain: Status: Chronic (11) Diabetes: Status: Chronic Assessment and Plan: Start ISS. (12) Anemia: Problem details: Hgb 9.7 on 05/02/22 Status: Chronic Assessment and Plan: Stable. (13) Hypokalemia: Status: Acute Assessment and Plan: Give oral replacement today. Check magnesium. Plan Has h/o PE/DVT, but has chosen to be off antiocagulation in favor of palliative and mental health treatment only. Subjective Time Seen by Provider: 08:00 Date Seen: 05/27/22 Interval history: Feels better today. Tells me that he had a urinary tract infection that was treated with antibiotics after getting a routine monthly suprapubic catheter change. His catheter was not changed again upon starting antibiotics for the UTI. He tells me that his trilogy CPAP for his tracheostomy is too large and heavy to bring in. EXAM General: No acute distress. Awake, alert, oriented x3. No pallor. No jaundice. Morbidly obese. Oropharynx: Clear. Mucous membranes moist. Tracheostomy present. Cardiovascular: Regular rate and rhythm. No murmurs, gallops, or rubs. Respiratory: Clear to auscultation bilaterally. No wheezes or crackles. Abdomen: Bowel sounds present. Soft, nondistended, nontender. Skin: Mild candidal intertrigo of the abdominal in groin skin folds. No open sores or areas concerning for infection. Venous stasis changes are present on his lower legs bilaterally. Exam Const: Vital Signs, click to edit/add: Vital Signs - 24 hr 05/26/22 15:41 05/26/22 15:53 05/26/22 17:18 Temperature 99.7 F H Pulse Rate Pulse Rate [Apical ] 113 H Pulse Rate [Pulse Oximeter] Respiratory Rate 22 Blood Pressure [Le ft Arm] Blood Pressure [Ri ght Forearm] 109/59 L Pulse Oximetry 94 94 93 [facility] Oxygen Flow Rate 05/26/22 15:40 05/26/22 16:00 05/26/22 17:00 Temperature Pulse Rate Pulse Rate [Apical ] 111 H 114 H 107 H Pulse Rate [Pulse Oximeter] Respiratory Rate 14 15 Blood Pressure [Le ft Arm] Blood Pressure [Ri ght Forearm] 109/59 L 105/74 Pulse Oximetry 93 93 [facility] Room Air Oxygen Flow Rate 05/26/22 17:30 05/26/22 18:00 05/26/22 18:30 Temperature Pulse Rate Pulse Rate [Apical ] 105 H 107 H 107 H Pulse Rate [Pulse Oximeter] Respiratory Rate 15 Blood Pressure [Le ft Arm] Blood Pressure [Ri ght Forearm] 103/71 104/69 107/73 Pulse Oximetry 93 92 93 [facility] Room Air Room Air Oxygen Flow Rate 05/26/22 19:00 05/26/22 20:00 05/26/22 21:30 Temperature 102.5 F H Pulse Rate Pulse Rate [Apical ] 100 98 Pulse Rate [Pulse Oximeter] Respiratory Rate 12 12 Blood Pressure [Le ft Arm] Blood Pressure [Ri ght Forearm] 128/76 124/84 Pulse Oximetry 94 96 [facility] Room Air Oxygen Flow Rate 05/26/22 23:22 05/27/22 00:30 05/26/22 21:24 Temperature 102.5 F H 99.9 F H 102.5 F H Pulse Rate Pulse Rate [Apical ] Pulse Rate [Pulse Oximeter] 136 H Respiratory Rate 24 Blood Pressure [Le ft Arm] Blood Pressure [Ri ght Forearm] Pulse Oximetry Oxygen Delivery Me thod Oxygen Flow Rate 05/27/22 00:39 05/26/22 23:00 05/26/22 23:00 Temperature 99.9 F H Pulse Rate Pulse Rate [Apical ] Pulse Rate [Pulse Oximeter] 132 H Respiratory Rate 20 20 Blood Pressure [Le ft Arm] 135/68 Blood Pressure [Ri ght Forearm] Pulse Oximetry 91 91 88 Oxygen Delivery Me thod Nasal Cannula Nasal Cannula Oxygen Flow Rate 2.0 2.0 05/26/22 23:00 05/26/22 23:00 05/26/22 23:00 Temperature 99.8 F H Pulse Rate 126 H Pulse Rate [Apical ] Pulse Rate [Pulse Oximeter] 105 H Respiratory Rate 20 22 Blood Pressure [Le ft Arm] 135/84 Blood Pressure [Ri ght Forearm] Pulse Oximetry 91 96 Oxygen Delivery Me thod Room Air Room Air Oxygen Flow Rate 05/26/22 23:00 05/27/22 03:00 05/27/22 07:00 Temperature 99.0 F Pulse Rate Pulse Rate [Apical ] Pulse Rate [Pulse Oximeter] 132 H 105 H Respiratory Rate 22 16 Blood Pressure [Le ft Arm] 132/58 L Blood Pressure [Ri ght Forearm] Pulse Oximetry 93 91 Oxygen Delivery Me thod Nasal Cannula Oxygen Flow Rate 2.0 05/27/22 07:00 05/27/22 07:00 05/27/22 07:00 Temperature 98.7 F Pulse Rate Pulse Rate [Apical ] Pulse Rate [Pulse Oximeter] 104 H 104 H Respiratory Rate 16 20 Blood Pressure [Le ft Arm] 126/72 Blood Pressure [Ri ght Forearm] Pulse Oximetry 94 93 Oxygen Delivery Me thod Room Air Room Air Oxygen Flow Rate 05/27/22 07:00 Temperature Pulse Rate 101 H Pulse Rate [Apical ] Pulse Rate [Pulse Oximeter] Respiratory Rate Blood Pressure [Le ft Arm] Blood Pressure [Ri ght Forearm] Pulse Oximetry Oxygen Delivery Me thod Oxygen Flow Rate Labs Labs: Laboratory Results - last 24 hr 05/26/22 05/26/22 05/26/22 16:45 16:55 17:10 WBC 7.66 RBC 4.56 Hgb 10.1 L Hct 33.5 L MCV 74 L MCH 22 L MCHC 30 L RDW Coeff of Veren[place] 18.3 H Plt Count 86 L Neut % (Auto) 81.2 H Lymph % (Auto) 7.3 L [place] % (Auto) 10.2 Eos % (Auto) 0.5 Baso % (Auto) 0.3 Neut # (Auto) 6.20 Lymph # (Auto) 0.60 L [place] # (Auto) 0.80 Eos # (Auto) 0.04 Baso # (Auto) 0.02 Abs Immat Gran (auto) 0.04 Diff Slide Review ESR INR Sodium Potassium Chloride Carbon Dioxide BUN Creatinine Estimated Creat Clear Estimated GFR Glucose Lactate Calcium Magnesium Total Bilirubin AST ALT Alkaline Phosphatase C-Reactive Protein NT-Pro-B Natriuret Pep Total Protein Albumin Procalcitonin Urine Color Yellow Urine Appearance Cloudy A Urine pH 6.0 Ur Specific [place] 1.010 Urine Protein 1+ A Urine Glucose (UA) Negative Urine Ketones Negative Urine Blood 2+ A Urine Nitrite Positive A Urine Bilirubin Negative Urine Urobilinogen 1.0 Ur Leukocyte Esterase 3+ A Urine RBC 10-25 A Urine WBC >100 A Ur Squamous Epith Cells None Amorphous Sediment Few A Other Sediment MANY YEAST Urine Bacteria Many A Urine Yeast Many A SARS-CoV-2 (PCR) Negative SARS-CoV-2 Influenza Type A (PCR) Negative PCR FLU A Influenza Type B (PCR) Negative PCR FLU B 05/26/22 05/26/22 05/26/22 17:10 17:10 17:10 WBC RBC Hgb Hct MCV MCH MCHC RDW Coeff of [place] Plt Count Neut % (Auto) Lymph % (Auto) [place] % (Auto) Eos % (Auto) Baso % (Auto) Neut # (Auto) Lymph # (Auto) [place] # (Auto) Eos # (Auto) Baso # (Auto) Abs Immat Gran (auto) Diff Slide Review ESR 29 H INR 1.26 H Sodium 136 Potassium 3.6 Chloride 104 Carbon Dioxide 24 BUN 9 Creatinine 0.7 Estimated Creat Clear 129.33 Estimated GFR 108 Glucose 213 H Lactate Calcium 8.6 Magnesium Total Bilirubin 0.5 AST 38 H ALT 29 Alkaline Phosphatase 129 C-Reactive Protein 2.9 H NT-Pro-B Natriuret Pep Total Protein 6.9 Albumin 3.5 Procalcitonin Urine Color Urine Appearance Urine pH Ur Specific [place] Urine Protein Urine Glucose (UA) Urine Ketones Urine Blood Urine Nitrite Urine Bilirubin Urine Urobilinogen Ur Leukocyte Esterase Urine RBC Urine WBC Ur Squamous Epith Cells Amorphous Sediment Other Sediment Urine Bacteria Urine Yeast SARS-CoV-2 (PCR) Influenza Type A (PCR) Influenza Type B (PCR) 05/26/22 05/26/22 05/27/22 17:10 17:10 06:15 WBC 9.32 RBC 4.10 L Hgb 9.1 L Hct 30.9 L MCV 75 L MCH 22 L MCHC 29 L RDW Coeff of Verenice 18.4 H Plt Count 71 L Neut % (Auto) 83.5 H Lymph % (Auto) 4.2 L [place] % (Auto) 11.8 H Eos % (Auto) 0.1 Baso % (Auto) 0.1 Neut # (Auto) 7.80 H Lymph # (Auto) 0.40 L [place] # (Auto) 1.10 H Eos # (Auto) 0.01 Baso # (Auto) 0.01 Abs Immat Gran (auto) 0.03 Diff Slide Review Acceptable Review ESR INR Sodium Potassium Chloride Carbon Dioxide BUN Creatinine Estimated Creat Clear Estimated GFR Glucose Lactate 1.9 Calcium Magnesium Total Bilirubin AST ALT Alkaline Phosphatase C-Reactive Protein NT-Pro-B Natriuret Pep 135 H Total Protein Albumin Procalcitonin 2.71 H Urine Color Urine Appearance Urine pH Ur Specific [place] Urine Protein Urine Glucose (UA) Urine Ketones Urine Blood Urine Nitrite Urine Bilirubin Urine Urobilinogen Ur Leukocyte Esterase Urine RBC Urine WBC Ur Squamous Epith Cells Amorphous Sediment Other Sediment Urine Bacteria Urine Yeast SARS-CoV-2 (PCR) Influenza Type A (PCR) Influenza Type B (PCR) 05/27/22 06:15 WBC RBC Hgb Hct MCV MCH MCHC RDW Coeff of [place]renice Plt Count Neut % (Auto) Lymph % (Auto) [place] % (Auto) Eos % (Auto) Baso % (Auto) Neut # (Auto) Lymph # (Auto) [place] # (Auto) Eos # (Auto) Baso # (Auto) Abs Immat Gran (auto) Diff Slide Review ESR INR Sodium 136 Potassium 3.5 L Chloride 105 Carbon Dioxide 23 BUN 12 Creatinine 1.2 Estimated Creat Clear 73.21 Estimated GFR 71 Glucose 190 H Lactate Calcium 7.7 L Magnesium 1.6 Total Bilirubin AST ALT Alkaline Phosphatase C-Reactive Protein 5.5 H NT-Pro-B Natriuret Pep Total Protein Albumin Procalcitonin 13.40 H Urine Color Urine Appearance Urine pH Ur Specific [place] Urine Protein Urine Glucose (UA) Urine Ketones Urine Blood Urine Nitrite Urine Bilirubin Urine Urobilinogen Ur Leukocyte Esterase Urine RBC Urine WBC Ur Squamous Epith Cells Amorphous Sediment Other Sediment Urine Bacteria Urine Yeast SARS-CoV-2 (PCR) Influenza Type A (PCR) Influenza Type B (PCR)
[2022-05-27] MEDS: TIZANIDINE HCL 4 MG TABLET PO (15:49)
--- NOTE | 2022-05-27 17:49 | PC.NURSE ---
Addendum entered by Mei Mazariegos RN 05/27/22 17:59: Tizanidine 4 mg given PO for chronic back pain of 7 out of 10. Original Note: Assumed care of this pt from Snehal Arce RN. Pt had a late afternoon snack tray at initial assessment. IV ATB infused without difficulty to peripheral IV Right forearm. IV left wrist pink and tender, site discontinued and pressure dressing applied for excessive bleeding from site. Pt pleasant, calm and cooperative. Pt says he felt sweaty but remains afebrile with oral temp of 98.4. Ice pack to pt's neck and clean gown per [employer]. Pt up in recliner and is currently ordering his dinner. Suprapubic catheter patent and draining clear yellow urine, no drsg at insertion site. Pt has a tracheostomy which he cares for himself, he expectorated moderate amount of yellowish chan sputum, trash can placed by pt's recliner. Continue POC. Report will be given to oncoming shift RN.
[2022-05-27] MEDS: lamoTRIgine 100 MG TABLET 200 MG PO (21:00)
[2022-05-27] MEDS: QUETIAPINE 100 MG TABLET 200 MG PO (21:01)
[2022-05-27] MEDS: TRAZODONE HCL 50 MG TABLET 200 MG PO (21:01)
[2022-05-28 02:29] VITALS: BP 132/77; PULSE 92; RESP 20; TEMP 36.5; O2SAT 93
[2022-05-28] MEDS: PIPERACILLIN/TAZOBACTAM 3.375 GM in 0.9 % SODIUM CHLORIDE Mini-bag 100 ML IVPB (03:52)
[2022-05-28] MEDS: 0.9 % SODIUM CHLORIDE 1000 ml 1,000 ML 125 ML IV (06:33)
--- NOTE | 2022-05-28 06:46 | PC.NURSE ---
[id number]: Patient pleasant and cooperative with cares. Afebrile. Rates chronic back pain 6-04/18. PRN Morphine administered for relief. Suprapubic cath patent and draining large amounts of light alirio urine. Patient manages own trach cares. SBA. Slept on and off throughout night. Denies N/V.
[2022-05-28 07:00] VITALS: BP 144/76; PULSE 103; PULSE 95; RESP 20; TEMP 37.1; O2SAT 94; O2SAT 97
--- NOTE | 2022-05-28 07:48 | PM.IMPN1 ---
Progress Note: A&P Assessment and plan (1) Sepsis: Problem details: Suspect secondary to urinary tract infection Status: Acute Assessment and Plan: Vitals have normalized. Sepsis has resolved. UC shows pansensitive Ecoli. 2/2 BC growing G-rods. Change to ceftriaxone, await BC results, then transition to oral antibiotic. (2) Acute UTI: Problem details: Associated with suprapubic catheter Status: Acute Assessment and Plan: Catheter change at onset of antibiotics. (3) Fever: Status: Acute Assessment and Plan: Resolved now on antibiotics. (4) Sinus tachycardia: Status: Acute Assessment and Plan: Resolved. (5) Chronic suprapubic catheter: Status: Chronic Assessment and Plan: Catheter changed yesterday when antibiotics were started (6) Chronic idiopathic thrombocytopenia: Problem details: Plt 83 on 05/02/22 Status: Chronic Assessment and Plan: Continue to monitor. He has h/o PE/DVT, but has chosen to be off anticoagulation. (7) RAPHAEL (obstructive sleep apnea): Status: Chronic Assessment and Plan: Appreciate RT assessment. (8) Borderline personality disorder in adult: Status: Chronic Assessment and Plan: stable. continue psych meds. (9) Obesity: Status: Chronic (10) Chronic pain: Status: Chronic (11) Diabetes: Status: Chronic Assessment and Plan: Refuses insulin. (12) Anemia: Problem details: Hgb 9.7 on 05/02/22 Status: Chronic (13) Hypokalemia: Status: Acute Assessment and Plan: Replaced yesterday. Rechek in am. (14) Bright red blood per rectum: Status: Acute Assessment and Plan: Recheck Hgb and platelets. Consult gen surgery as he may need EGD/colonoscopy. I'm not sure if we can do that here, though, given that he has a tracheostomy and has significant thrombocytopenia. Plan Has h/o PE/DVT, but has chosen to be off antiocagulation in favor of palliative and mental health treatment only. Have PT/OT assess ambulation and ability to return to current living situation. Potential discharge tomorrow/when BC results are complete. Subjective Time Seen by Provider: 07:30 Date Seen: 05/28/22 Interval history: Had chills yesterday afternoon, no fever. Feeling well this morning. 2/2 BC grew out G- rods. Gerson declines insulin. Had a dark BM with bright red blood mixed in. He says he has had BRBPR before, but it is usually hemorroidal and he will feel the stool scrape through, and then there will be a small streak of blood on the stool. The blood in this stool seemed to be inside the stool. No clots. Gerson has asked to be in palliative care, hospice earlier this year. We had a discussion today about how invasive he would like to be. He would like us to work this up so he can see if it is something with an easy fix or not. EXAM General: No acute distress. Awake, alert, oriented x3. No pallor. No jaundice. Morbidly obese. Oropharynx: Clear. Mucous membranes moist. Tracheostomy present. Cardiovascular: Regular rate and rhythm. No murmurs, gallops, or rubs. Respiratory: Clear to auscultation bilaterally. No wheezes or crackles. Extremities: Venous stasis changes are present on his lower legs bilaterally. Exam Const: Vital Signs, click to edit/add: Vital Signs - 24 hr 05/27/22 14:06 05/27/22 11:00 05/27/22 15:00 Temperature 98.8 F 98.8 F Pulse Rate Pulse Rate [Pulse Oximeter] 101 H 104 H Respiratory Rate 20 20 20 Blood Pressure [Le ft Arm] 128/67 130/68 Pulse Oximetry 94 94 Oxygen Delivery Me thod Room Air Room Air Room Air Oxygen Flow Rate 05/27/22 15:00 05/27/22 15:00 05/27/22 16:00 Temperature Pulse Rate 109 H Pulse Rate [Pulse Oximeter] Respiratory Rate Blood Pressure [Le ft Arm] Pulse Oximetry 94 94 Oxygen Delivery Me thod Room Air Oxygen Flow Rate 05/27/22 19:00 05/27/22 23:00 05/27/22 23:00 Temperature 98.3 F 97.2 F L Pulse Rate Pulse Rate [Pulse Oximeter] 88 88 Respiratory Rate 22 16 16 Blood Pressure [Le ft Arm] 96/61 116/68 Pulse Oximetry 90 95 95 Oxygen Delivery Me thod Room Air Nasal Cannula Trach Collar OxyMa sk Oxygen Flow Rate 2.0 2.0 05/27/22 23:00 05/27/22 23:00 05/27/22 23:00 Temperature Pulse Rate 86 Pulse Rate [Pulse Oximeter] 88 Respiratory Rate Blood Pressure [Le ft Arm] Pulse Oximetry 95 Oxygen Delivery Me thod Oxygen Flow Rate 05/28/22 02:29 Temperature 97.7 F Pulse Rate Pulse Rate [Pulse Oximeter] 92 Respiratory Rate 20 Blood Pressure [Le ft Arm] 132/77 Pulse Oximetry 93 Oxygen Delivery Me thod Room Air Trach Col lar OxyMask Oxygen Flow Rate
[2022-05-28] MEDS: SERTRALINE 50 MG TABLET 150 MG PO (09:28)
[2022-05-28] MEDS: PREGABALIN 75 MG CAPSULE PO ×2 (09:30→20:08)
[2022-05-28] MEDS: NYSTATIN CREAM 30 GM 1 APPLIC TOPICAL ×3 (09:31→20:09)
[2022-05-28] MEDS: SODIUM CHLORIDE 0.9 % (FLUSH) 10 ML SYRINGE 5 ML IVF ×2 (09:31→20:10)
[2022-05-28] MEDS: cefTRIAXone 2 GM in 0.9 % SODIUM CHLORIDE Mini-bag 100 ML IVPB (10:36)
[2022-05-28] MEDS: 0.9 % SODIUM CHLORIDE 250 ml IV (10:36)
[2022-05-28] MEDS: ACETAMINOPHEN 500 MG TABLET 1000 MG PO (10:42)
[2022-05-28 10:54] LABS: Basophils Percent Auto 0.3 % (0.0-3.0); Eosinophils Percent Auto 3.9 % (0.0-7.0); Hematocrit 31.5 % (37.0-53.0); Hemoglobin* 9.2 gm/dL (13.5-17.5); Immature Granulocytes Abs Auto 0.01 K/uL (0.00-0.30); Lymphocytes Percent Auto 12.1 % (20-44); Mean Corpuscular HGB Conc 29 gm/dL (32-36); Mean Corpuscular Hemoglobin 22 pg (26-34); Mean Corpuscular Volume 76 fL (80-100); Monocytes Percent Auto 15.7 % (0.0-11.0); Neutrophils Percent Auto 67.7 % (42.0-72.0); Platelet Count* 69 K/uL (140-440); RDW Coefficient of Variation % 18.8 % (11.5-15.5); Red Blood Count 4.14 m/uL (4.30-5.90); White Blood Count* 3.81 K/uL (4.50-11.00)
[2022-05-28 10:57] LABS: Slide Review Reflex No
[2022-05-28 11:00] VITALS: BP 116/73; PULSE 96; RESP 20; TEMP 37.7; O2SAT 96
[2022-05-28 11:12] LABS: Chloride* 105 mmol/L (96-114); Potassium* 3.8 mmol/L (3.6-5.1); Sodium* 138 mmol/L (135-149)
[2022-05-28 11:14] LABS: Creatinine* 0.7 mg/dL (0.5-1.5); Estimated Glomerular Filt Rate 108 ml/min
[2022-05-28 11:15] LABS: Blood Urea Nitrogen* 10 mg/dL (7-30); Calcium* 7.7 mg/dL (8.4-10.6); Carbon Dioxide* 27 mmol/L (20-32); Glucose* 213 mg/dL (60-115)
--- NOTE | 2022-05-28 13:09 | REH.OT ---
Orders received for OT eval and treat. The patient reports that ADLs and mobility were going fine at home. He has a [employer] HAND 5x per week and a RN 1x per week. No formal OT warranted.
--- NOTE | 2022-05-28 13:30 | P.GSCN_ITS ---
History of Present Illness Consult details Date Seen: 05/28/22 Consult date: 05/28/22 Narrative: Patient is a pleasant 57-year-old male, who was admitted to the hospital over the weekend for urosepsis. He was started on antibiotics, with overall clinical improvement but then had a dark tarry bowel movement this morning. He states that he has suffered ?for years? of bleeding per rectum with his hemorrhoids. That bleeding is usually bright red and on the toilet paper. This bleeding was different because it was dark tarry and mixed within the stool. He denies any pain with bowel movement. He has not had a bowel movement since this morning. He denies any abdominal pain. He did have a single episode of emesis on Saturday, but denies any hematemesis. His abdominal surgical history is positive for gastric bypass (2004), cholecystectomy and suprapubic catheter placement. He does have a history of chronic anemia and thrombocytopenia. His last colonoscopy was 2019. It was done at [facility] and incomplete with recommendations for CT colono graphy. He does have a history of polyps and a family history positive for colon cancer in his mom, who at age 65. His last upper endoscopy 10/2019, with no marginal ulcer seen at that time or source of bleeding identified. Review of Systems Status of ROS: Reports: 10 or more systems reviewed and unremarkable except as noted in History and below [facility], [facility] Medical History Anemia Bipolar disorder Borderline personality disorder in adult Chronic idiopathic thrombocytopenia Chronic idiopathic thrombocytopenia Chronic pain Chronic pain syndrome CVA (cerebral vascular accident) Diabetes Fever History of deep venous thrombosis or pulmonary embolus History of suicide attempt Iron deficiency anemia following bariatric surgery Migraine Migraines Obesity RAPHAEL (obstructive sleep apnea) Pulmonary embolism Suprapubic catheter Surgical History Gastric bypass status for obesity History of cholecystectomy History of lumbar surgery History of total right knee replacement (TKR) S/P ACL repair Family History Other Chronic idiopathic thrombocytopenia Social History Smoking Status: Former smoker What tobacco products do you use: cigarettes Years smoked: 10 Smoking quit date/years: <= 15 years ago Do you use any of these nicotine containing products: None Second hand tobacco smoke exposure: No How often do you have a drink containing alcohol: 2-4 times a month How many standard drinks containing alcohol do you have on a typical day: 1 or 2 How often do you have six or more drinks on one occasion: Never AUDIT-C Alcohol total score: 2 Non-prescribed substance use: denies use Caffeine: Yes (coffee) service: No Meds Home Medications and Allergies Home Medications Medication Instructions Recorded Confirmed Type cyanocobalamin (vitamin B-12) 1,000 mcg IM Q4W 05/26/22 05/26/22 History 1,000 mcg/mL injection solution fluticasone propionate 50 2 spray intranasal DAILY 05/26/22 05/26/22 History mcg/actuation nasal spray,suspension lamotrigine 200 mg tablet 200 mg PO HS 05/26/22 05/26/22 History metronidazole 0.75 % topical cream 1 applic topical BID 05/26/22 05/27/22 History morphine 30 mg immediate release 30 mg PO Q6H PRN 05/26/22 05/26/22 History tablet nystatin 100,000 unit/gram topical 1 applic topical BID 05/26/22 05/26/22 History cream pregabalin 75 mg capsule 75 mg PO BID 05/26/22 05/26/22 History quetiapine 100 mg tablet 200 mg PO HS 05/26/22 05/26/22 History sertraline 50 mg tablet 150 mg PO DAILY 05/26/22 05/26/22 History tizanidine 2 mg tablet 2 - 4 mg PO Q8H PRN 05/26/22 05/26/22 History trazodone 100 mg tablet 200 mg PO HS 05/26/22 05/26/22 History ciprofloxacin 0.3 %-dexamethasone See Rx Instructions .Route .COMPLEX 05/27/22 05/27/22 History 0.1 % ear drops,suspension ondansetron 4 mg disintegrating 4 mg PO Q8H PRN 05/27/22 05/27/22 History tablet Allergies Allergy/AdvReac Type Severity Reaction Status Date / Time latex Allergy Verified 05/26/22 15:41 aspirin AdvReac Verified 05/26/22 15:41 codeine AdvReac Verified 05/26/22 15:41 Exam Narrative: Exam Narrative: General: Alert and oriented, no acute distress. Nontoxic HEENT: Tracheostomy in place Respiratory: Equal breath rise bilaterally, maintained on room air CV: Regular rhythm rate, well perfused Abdomen: Obese abdomen, soft, nontender and nondistended. No guarding or rebound. Suprapubic catheter in place. Genitourinary: Perianal exam with no evidence of any external thrombosed hemorrhoids or skin tags. Digital rectal exam performed with no rectal mass palpated and no blood on glove. No noted bright red blood per rectum. Const: Vital Signs, click to edit/add: Vital Signs - 24 hr 05/27/22 14:06 05/27/22 15:00 05/27/22 15:00 Temperature 98.8 F Pulse Rate Pulse Rate [Pulse Oximeter] 104 H Respiratory Rate 20 20 Blood Pressure [Le ft Arm] 130/68 Pulse Oximetry 94 94 Oxygen Delivery Me thod Room Air Room Air Room Air Oxygen Flow Rate 05/27/22 15:00 05/27/22 16:00 05/27/22 19:00 Temperature 98.3 F Pulse Rate 109 H Pulse Rate [Pulse Oximeter] 88 Respiratory Rate 22 Blood Pressure [Le ft Arm] 96/61 Pulse Oximetry 94 90 Oxygen Delivery Me thod Room Air Oxygen Flow Rate 05/27/22 23:00 05/27/22 23:00 05/27/22 23:00 Temperature 97.2 F L Pulse Rate 86 Pulse Rate [Pulse Oximeter] 88 Respiratory Rate 16 16 Blood Pressure [Le ft Arm] 116/68 Pulse Oximetry 95 95 Oxygen Delivery Me thod Nasal Cannula Trach Collar OxyMa sk Oxygen Flow Rate 2.0 2.0 05/27/22 23:00 05/27/22 23:00 05/28/22 02:29 Temperature 97.7 F Pulse Rate Pulse Rate [Pulse Oximeter] 88 92 Respiratory Rate 20 Blood Pressure [Le ft Arm] 132/77 Pulse Oximetry 95 93 Oxygen Delivery Me thod Room Air Trach Col lar OxyMask Oxygen Flow Rate 05/28/22 07:00 05/28/22 07:00 05/28/22 07:00 Temperature 98.7 F Pulse Rate 103 H Pulse Rate [Pulse Oximeter] 95 Respiratory Rate 20 Blood Pressure [Le ft Arm] 144/76 H Pulse Oximetry 94 97 Oxygen Delivery Me thod Room Air Oxygen Flow Rate 05/28/22 07:00 05/28/22 07:00 05/28/22 11:00 Temperature 99.9 F H Pulse Rate Pulse Rate [Pulse Oximeter] 95 96 Respiratory Rate 20 20 20 Blood Pressure [Le ft Arm] 116/73 Pulse Oximetry 97 96 Oxygen Delivery Me thod Room Air Room Air Oxygen Flow Rate 0 0 Results Labs Labs: Abnormal lab results 05/28/22 05/28/22 Range/Units 10:39 10:39 WBC 3.81 L (4.50-11.00) K/uL RBC 4.14 L (4.30-5.90) m/uL Hgb 9.2 L (13.5-17.5) gm/dL Hct 31.5 L (37.0-53.0) % MCV 76 L (80-100) fL MCH 22 L (26-34) pg MCHC 29 L (32-36) gm/dL RDW Coeff of Verenice 18.8 H (11.5-15.5) % Plt Count 69 L (140-440) K/uL Lymph % (Auto) 12.1 L (20-44) % Robertson % (Auto) 15.7 H (0.0-11.0) % Lymph # (Auto) 0.50 L (0.90-2.90) K/uL Glucose 213 H (60-115) mg/dL Calcium 7.7 L (8.4-10.6) mg/dL Diabetes panel 05/28/22 Range/Units 10:39 Sodium 138 (135-149) mmol/L Potassium 3.8 (3.6-5.1) mmol/L Chloride 105 (96-114) mmol/L Carbon Dioxide 27 (20-32) mmol/L BUN 10 (7-30) mg/dL Creatinine 0.7 (0.5-1.5) mg/dL Glucose 213 H (60-115) mg/dL Calcium 7.7 L (8.4-10.6) mg/dL Calcium panel 05/28/22 Range/Units 10:39 Calcium 7.7 L (8.4-10.6) mg/dL Pituitary panel 05/28/22 Range/Units 10:39 Sodium 138 (135-149) mmol/L Potassium 3.8 (3.6-5.1) mmol/L Chloride 105 (96-114) mmol/L Carbon Dioxide 27 (20-32) mmol/L BUN 10 (7-30) mg/dL Creatinine 0.7 (0.5-1.5) mg/dL Glucose 213 H (60-115) mg/dL Calcium 7.7 L (8.4-10.6) mg/dL Adrenal panel 05/28/22 Range/Units 10:39 Sodium 138 (135-149) mmol/L Potassium 3.8 (3.6-5.1) mmol/L Chloride 105 (96-114) mmol/L Carbon Dioxide 27 (20-32) mmol/L BUN 10 (7-30) mg/dL Creatinine 0.7 (0.5-1.5) mg/dL Glucose 213 H (60-115) mg/dL Calcium 7.7 L (8.4-10.6) mg/dL All other labs normal. Assessment and Plan Assessment and plan (1) Dark stools: Status: Acute Plan Patient is a 57-year-old male, with complex past medical history, who is currently in the hospital for urosepsis. He had a reported dark tarry stool this morning. Vital signs stable. Repeat hemoglobin stable at 9.1. His platelets are trending down (63). He does have a history of chronic idiopathic thrombocytopenia. Low concern at this time for ongoing bleeding. The source of his bleeding could be from the upper GI system. He does have a history of gastric bypass, which carries a risk of marginal ulcer. He could also be bleeding from a colon cancer or large polyp. He did have recommendations on his last colonoscopy for a CT colonography, due to an incomplete exam. At this time there is low concern for bleeding internal hemorrhoids as a potential source. Recommend that hemoglobins be trended. If there is concern for active ongoing bleeding patient would benefit from an upper/lower endoscopy, which should be performed at a larger institution. If patient remains stable would recommend an upper endoscopy and CT colonography as an outpatient. Again, patient is high risk and any procedure should be performed at a larger tertiary center. Appreciate the consultation. Please call with any acute clinical changes, questions or concerns.
--- NOTE | 2022-05-28 14:52 | NUTR.NU ---
Pt pleasant and cooperative. steady on feet, verbalizes i'm still a bit weaker than baseline. Temps today 98.7 and 99.9 oral. Pt c/o LEVY- tyl given. temp recheck thus far 99.2. bloody stool today, notified - serial hgb's ordered. Pt home health nurse through [facility], updated at 1450 and noted that pt has been having bloody stools for quite some time now, especially over the past 3 months. Thigh high TEDS placed at 1300 today. ABX changed from zosyn to ceftriaxone. LS CTA. Nystatin to skin folds, sm. open area to right fold otherwise skin pink and intact. Saline locked - good urine output. Suprapubic cares done today - urine clear. PT/OT ordered to eval/treat. Trach intact - pt independent with cares.
[2022-05-28 15:00] VITALS: BP 116/80; PULSE 88; PULSE 90; PULSE 97; RESP 18; TEMP 37; O2SAT 94
[2022-05-28 17:20] LABS: Hemoglobin* 9.4 gm/dL (13.5-17.5)
[2022-05-28] MEDS: TIZANIDINE HCL 4 MG TABLET PO (18:35)
[2022-05-28 19:00] VITALS: BP 126/80; PULSE 82; RESP 18; TEMP 36.9; O2SAT 94
[2022-05-28] MEDS: TRAZODONE HCL 50 MG TABLET 200 MG PO (20:06)
[2022-05-28] MEDS: QUETIAPINE 100 MG TABLET 200 MG PO (20:06)
[2022-05-28] MEDS: lamoTRIgine 100 MG TABLET 200 MG PO (20:07)
[2022-05-28 23:00] VITALS: BP 108/60; PULSE 78; PULSE 87; RESP 18; TEMP 36.9; O2SAT 96
[2022-05-29] VITALS (10 sets, daily range): BP systolic 128–139; BP diastolic 64–83; PULSE 73–98; RESP 18–20; TEMP 36.6–37.9; O2SAT 95–98
[2022-05-29 00:44] LABS: Hemoglobin* 9.3 gm/dL (13.5-17.5)
[2022-05-29 06:31] LABS: Basophils Percent Auto 0.3 % (0.0-3.0); Eosinophils Percent Auto 4.2 % (0.0-7.0); Hemoglobin* 9.9 gm/dL (13.5-17.5); Mean Corpuscular HGB Conc 29 gm/dL (32-36); Mean Corpuscular Hemoglobin 22 pg (26-34); Mean Corpuscular Volume 76 fL (80-100); Monocytes Percent Auto 18.4 % (0.0-11.0); Neutrophils Percent Auto 56.1 % (42.0-72.0); Platelet Count* 74 K/uL (140-440); RDW Coefficient of Variation % 18.7 % (11.5-15.5)
--- NOTE | 2022-05-29 06:31 | PC.NURSE ---
Alert and oriented x4. No concerns for pain overnight. patient slept through the night. Afebrile and other vitals stable
[2022-05-29 06:49] LABS: Chloride* 106 mmol/L (96-114); Potassium* 4.5 mmol/L (3.6-5.1); Sodium* 139 mmol/L (135-149)
[2022-05-29 06:51] LABS: Slide Review Reflex No
[2022-05-29 06:52] LABS: Blood Urea Nitrogen* 7 mg/dL (7-30); Calcium* 8.1 mg/dL (8.4-10.6); Carbon Dioxide* 26 mmol/L (20-32); Creatinine* 0.7 mg/dL (0.5-1.5); Estimated Glomerular Filt Rate 108 ml/min; Glucose* 168 mg/dL (60-115)
[2022-05-29] MEDS: SERTRALINE 50 MG TABLET 150 MG PO (08:49)
[2022-05-29] MEDS: PREGABALIN 75 MG CAPSULE PO ×2 (08:49→21:34)
[2022-05-29] MEDS: NYSTATIN CREAM 30 GM 1 APPLIC TOPICAL ×3 (08:50→21:35)
[2022-05-29] MEDS: SODIUM CHLORIDE 0.9 % (FLUSH) 10 ML SYRINGE 5 ML IVF ×2 (08:50→18:54)
[2022-05-29] MEDS: cefTRIAXone 2 GM in 0.9 % SODIUM CHLORIDE Mini-bag 100 ML IVPB (08:51)
--- NOTE | 2022-05-29 09:09 | PC.SOCIAL ---
Met with pt. to discuss discharge plans. Pt. is still at the [facility] and has [facility]. Pt. has [facility] Nurse [facility] weekly and two different home health aides that alternate and see pt. daily. Pt. also has the noon meal at the [facility] and feels it has been going well with his care needs with his current services in place. Pt. would like the [facility] van arranged to transport back when ready for discharge.
[2022-05-29] MEDS: ACETAMINOPHEN 500 MG TABLET 1000 MG PO ×2 (12:43→21:33)
[2022-05-29] MEDS: ONDANSETRON 2 MG/ML inj 4 MG IVP ×2 (15:02→18:54)
--- NOTE | 2022-05-29 15:29 | PC.NURSE ---
Addendum entered by Lei Weinstein RN 05/29/22 17:47: Pt home health RN from [facility] ([phone]) updated at 1500. Temp recheck at 1600 100.0 oral. updated. Original Note: Pt initially planning on discharging today however elevated temp noted at 1245- 100.2. Dr. Nye notified. Tylenol given. Pt reports nausea around 1500 - zofran given. tele NSR. pt continues to have lg output from villalobos- clear yellow urine. IV infiltrated to left FA - New IV placed by Nurys in ED - #22 to left hand. Pt hard stick.
--- NOTE | 2022-05-29 16:47 | PM.IMPN1 ---
Progress Note: A&P Assessment and plan (1) Sepsis: Problem details: Suspect secondary to urinary tract infection Status: Acute (2) Acute UTI: Problem details: Associated with suprapubic catheter Status: Acute Assessment and Plan: Catheter changed at onset of antibiotics. (3) Fever: Status: Acute Assessment and Plan: Continue ceftriaxone. (4) Sinus tachycardia: Status: Acute Assessment and Plan: Resolved. (5) Chronic suprapubic catheter: Status: Chronic Assessment and Plan: Catheter changed yesterday when antibiotics were started. (6) Chronic idiopathic thrombocytopenia: Problem details: Plt 83 on 05/02/22 Status: Chronic Assessment and Plan: Continue to monitor. He has h/o PE/DVT, but has chosen to be off anticoagulation. (7) RAPHAEL (obstructive sleep apnea): Status: Chronic Assessment and Plan: Appreciate RT assessment. (8) Borderline personality disorder in adult: Status: Chronic Assessment and Plan: stable. continue psych meds. (9) Obesity: Status: Chronic (10) Chronic pain: Status: Chronic (11) Diabetes: Status: Chronic Assessment and Plan: Refuses insulin. (12) Anemia: Problem details: Hgb 9.7 on 05/02/22 Status: Chronic (13) Hypokalemia: Status: Acute Assessment and Plan: Resolved. (14) Bright red blood per rectum: Status: Acute (15) Leukopenia: Problem details: suspect secondary to sepsis Status: Acute Plan Elevated temp, but not fever today. UC and 2/2 BC show pansensitive Ecoli. Catheter changed at onset of antibiotics. Continue ceftriaxone. If does well overnight, d/c home tomorrow and change to po antibiotic. F/u with Dr. Delong, PCP. Hemoglobin has remained stable despite episode of bright red blood per rectum yesterday. No further episodes. Has had a normal bowel movement since then. Will need outpatient follow-up to schedule upper and lower GI endoscopies at a tertiary facility due to high risk of complications. Has h/o PE/DVT, but has chosen to be off antiocagulation in favor of palliative and mental health treatment only. Also hold considering recent GI bleed. Have PT/OT assess ambulation and ability to return to current living situation. Potential discharge tomorrow/when BC results are complete. Subjective Time Seen by Provider: 08:20 Date Seen: 05/29/22 Interval history: No chills or fever yesterday. Elevated temp midday today, not above 100.4 F. No more BRBPR or melena. Hgb stable. EXAM General: No acute distress. Awake, alert, oriented x3. No pallor. No jaundice. Morbidly obese. Oropharynx: Clear. Mucous membranes moist. Tracheostomy present. Cardiovascular: Regular rate and rhythm. No murmurs, gallops, or rubs. Respiratory: Clear to auscultation bilaterally. No wheezes or crackles. Extremities: Venous stasis changes are present on his lower legs bilaterally. Exam Const: Vital Signs, click to edit/add: Vital Signs - 24 hr 05/28/22 19:00 05/28/22 23:00 05/28/22 23:00 Temperature 98.5 F Pulse Rate 87 Pulse Rate [Pulse Oximeter] 82 78 Respiratory Rate 18 18 Blood Pressure [Le ft Arm] 126/80 Pulse Oximetry 94 Oxygen Delivery Me thod Room Air Oxygen Flow Rate 05/28/22 23:00 05/28/22 23:00 05/29/22 03:00 Temperature 98.5 F 98.5 F Pulse Rate Pulse Rate [Pulse Oximeter] 78 73 Respiratory Rate 18 18 18 Blood Pressure [Le ft Arm] 108/60 131/83 Pulse Oximetry 96 96 96 Oxygen Delivery Me thod OxyMask OxyMask OxyMask Oxygen Flow Rate 3 3 3 05/29/22 07:00 05/29/22 07:00 05/29/22 07:00 Temperature 98.5 F Pulse Rate 89 Pulse Rate [Pulse Oximeter] 98 98 Respiratory Rate 20 Blood Pressure [Le ft Arm] 139/74 Pulse Oximetry 98 Oxygen Delivery Me thod Room Air Oxygen Flow Rate 05/29/22 07:00 05/29/22 11:00 05/29/22 12:43 Temperature 99.2 F 100.2 F H Pulse Rate Pulse Rate [Pulse Oximeter] 96 Respiratory Rate 20 Blood Pressure [Le ft Arm] 137/75 Pulse Oximetry 98 96 Oxygen Delivery Me thod Room Air OxyMask Room Air OxyMask Oxygen Flow Rate 0 05/29/22 15:04 05/29/22 15:00 05/29/22 15:00 Temperature 98.8 F 98.8 F Pulse Rate Pulse Rate [Pulse Oximeter] 75 Respiratory Rate 20 20 Blood Pressure [Le ft Arm] 128/64 Pulse Oximetry 98 98 Oxygen Delivery Me thod Room Air OxyMask Room Air OxyMask Oxygen Flow Rate 0 0 05/29/22 15:00 05/29/22 15:00 Temperature Pulse Rate 96 Pulse Rate [Pulse Oximeter] 75 Respiratory Rate 20 Blood Pressure [Le ft Arm] Pulse Oximetry Oxygen Delivery Me thod Oxygen Flow Rate Labs Labs: Laboratory Results - last 24 hr 05/28/22 05/29/22 05/29/22 17:14 00:35 06:15 WBC 3.10 L RBC 4.50 Hgb 9.4 L 9.3 L 9.9 L Hct 34.0 L MCV 76 L MCH 22 L MCHC 29 L RDW Coeff of Verenice 18.7 H Plt Count 74 L Neut % (Auto) 56.1 Lymph % (Auto) 21.0 [place] % (Auto) 18.4 H Eos % (Auto) 4.2 Baso % (Auto) 0.3 Neut # (Auto) 1.70 Lymph # (Auto) 0.70 L [place] # (Auto) 0.60 Eos # (Auto) 0.10 Baso # (Auto) 0.00 Abs Immat Gran (auto) 0.00 Sodium Potassium Chloride Carbon Dioxide BUN Creatinine Estimated Creat Clear Estimated GFR Glucose Calcium 05/29/22 06:15 WBC RBC Hgb Hct MCV MCH MCHC RDW Coeff of Verenice Plt Count Neut % (Auto) Lymph % (Auto) [place] % (Auto) Eos % (Auto) Baso % (Auto) Neut # (Auto) Lymph # (Auto) [place] # (Auto) Eos # (Auto) Baso # (Auto) Abs Immat Gran (auto) Sodium 139 Potassium 4.5 Chloride 106 Carbon Dioxide 26 BUN 7 Creatinine 0.7 Estimated Creat Clear 125.50 Estimated GFR 108 Glucose 168 H Calcium 8.1 L
[2022-05-29 17:46] LABS: Hemoglobin* 9.7 gm/dL (13.5-17.5)
[2022-05-29] MEDS: lamoTRIgine 100 MG TABLET 200 MG PO (21:33)
[2022-05-29] MEDS: TRAZODONE HCL 50 MG TABLET 200 MG PO (21:34)
[2022-05-29] MEDS: QUETIAPINE 100 MG TABLET 200 MG PO (21:35)
[2022-05-30] VITALS (7 sets, daily range): BP systolic 109–153; BP diastolic 73–86; PULSE 82–101; RESP 18–22; TEMP 36.6–37.2; O2SAT 94–96
[2022-05-30 02:22] LABS: Hemoglobin* 9.4 gm/dL (13.5-17.5)
--- NOTE | 2022-05-30 05:40 | PC.NURSE ---
Pt pleasant and cooperative. He has been up in chair since 129. VSS He has been on RA all noc. Has been afebrile. Wright with a large output this shift. Clear yellow urine.
[2022-05-30] MEDS: NYSTATIN CREAM 30 GM 1 APPLIC TOPICAL ×3 (08:45→21:33)
[2022-05-30] MEDS: SERTRALINE 50 MG TABLET 150 MG PO (08:45)
[2022-05-30] MEDS: PREGABALIN 75 MG CAPSULE PO ×2 (08:45→21:33)
[2022-05-30] MEDS: SODIUM CHLORIDE 0.9 % (FLUSH) 10 ML SYRINGE 5 ML IVF ×2 (08:46→21:33)
[2022-05-30] MEDS: cefTRIAXone 2 GM in 0.9 % SODIUM CHLORIDE Mini-bag 100 ML IVPB (09:38)
--- NOTE | 2022-05-30 11:10 | PM.IMPN1 ---
Progress Note: A&P Assessment and plan (1) Urinary tract infection, E. coli: Problem details: Pansensitive Status: Acute Assessment and Plan: 1. Continue on ceftriaxone IV. (2) E coli bacteremia: Problem details: Pansensitive Status: Acute Assessment and Plan: 1. Repeat blood cultures. (3) Sepsis: Problem details: Suspect secondary to urinary tract infection Status: Acute Assessment and Plan: 1. Improving with our interventions. (4) Suprapubic catheter: Problem details: This is certainly contributing to his urinary tract infection and bacteremia. Status: Chronic Assessment and Plan: 1. This is chronic. Did changes supra pubic catheter on presentation to the hospital at this time. (5) Leukopenia: Problem details: suspect secondary to sepsis Status: Acute Assessment and Plan: 1. Continue to monitor. (6) Chronic idiopathic thrombocytopenia: Problem details: Plt 83 on 05/02/22 Status: Chronic Assessment and Plan: 1. Continue to monitor. (7) Acute UTI: Problem details: Associated with suprapubic catheter Status: Acute (8) Sinus tachycardia: Status: Acute (9) Fever: Status: Acute Assessment and Plan: 1. Fevers improved substantially with our interventions. (10) RAPHAEL (obstructive sleep apnea): Status: Chronic Assessment and Plan: 1. Continue with supportive efforts. (11) Pulmonary embolism: Problem details: History of Status: Chronic Assessment and Plan: 1. Patient declines utilization of anticoagulants. (12) Chronic pain: Status: Chronic Assessment and Plan: 1. Generally well controlled. (13) Obesity: Status: Chronic (14) Borderline personality disorder in adult: Status: Chronic (15) Diabetes: Problem details: He elects to not treat with hypoglycemic or anti-hyperglycemic agents. Status: Chronic Plan 1. Complete at least 5 days of IV antibiotics. 2. Recheck blood cultures 3. If stable may possibly be ready for discharge back to his home with all the support that he receives in-home. Time Spent With Patient Total time spent: 40 minutes Subjective Time Seen by Provider: 08:00 Date Seen: 05/30/22 Interval history: Hospital day 5. Generally feels improved. Still weak. A little stronger than yesterday. Able to help with ADLs now. Had some chills earlier this morning which have since resolved. Nevertheless has not had a fever recently. T-max yesterday 100.2? F. Has not had rigors. Still receiving IV ceftriaxone. Appetite is normalizing. Denies nausea or vomiting. Denies abdominal pain. Had bowel movements yesterday with bright red blood per rectum. This morning had bowel movement without any blood. Exam Narrative: Exam Narrative: No acute distress. Appears chronically ill. Pale complexion. Articulate, cooperative, friendly. Mood and affect are congruent. Alert, oriented to self, place, time, situation. Full neck. Tracheostomy in place. Lungs clear to auscultation, save decreased breath sounds in both bases. Heart tones with regular rhythm, normal S1-S2, no murmur, gallop, or rub. Barrel shaped chest. No CVA tenderness to thumping in his back. Abdomen is obese with active bowel sounds, soft, nontender. Trace edema pretibially bilaterally. Const: Vital Signs, click to edit/add: Vital Signs - 24 hr 05/29/22 12:43 05/29/22 15:04 05/29/22 15:00 Temperature 100.2 F H 98.8 F 98.8 F Pulse Rate Pulse Rate [Pulse Oximeter] 75 Respiratory Rate 20 Blood Pressure [Le ft Arm] 128/64 Pulse Oximetry 98 Oxygen Delivery Me thod Room Air OxyMask Oxygen Flow Rate 0 05/29/22 15:00 05/29/22 15:00 05/29/22 15:00 Temperature Pulse Rate 96 Pulse Rate [Pulse Oximeter] 75 Respiratory Rate 20 20 Blood Pressure [Le ft Arm] Pulse Oximetry 98 Oxygen Delivery Me thod Room Air OxyMask Oxygen Flow Rate 0 05/29/22 20:00 05/29/22 20:23 05/29/22 20:31 Temperature 98 F Pulse Rate 87 Pulse Rate [Pulse Oximeter] 85 85 Respiratory Rate 20 20 Blood Pressure [Le ft Arm] 139/64 Pulse Oximetry 95 Oxygen Delivery Me thod Room Air Oxygen Flow Rate 05/29/22 23:00 05/29/22 23:00 05/29/22 23:00 Temperature Pulse Rate 82 Pulse Rate [Pulse Oximeter] 84 Respiratory Rate Blood Pressure [Le ft Arm] Pulse Oximetry Oxygen Delivery Ms thod Room Air Oxygen Flow Rate 05/30/22 02:46 05/30/22 00:00 05/30/22 07:00 Temperature 97.8 F 97.8 F Pulse Rate Pulse Rate [Pulse Oximeter] 82 Respiratory Rate 20 Blood Pressure [Le ft Arm] 125/76 Pulse Oximetry 95 Oxygen Delivery Me thod Room Air Room Air Oxygen Flow Rate 05/30/22 07:00 05/30/22 07:00 05/30/22 07:00 Temperature 98.6 F Pulse Rate 88 Pulse Rate [Pulse Oximeter] 96 96 Respiratory Rate 20 20 Blood Pressure [Le ft Arm] 130/84 Pulse Oximetry 94 Oxygen Delivery Me thod Room Air Oxygen Flow Rate 0 Labs Labs: Laboratory Results - last 24 hr 05/29/22 05/30/22 17:30 02:15 Hgb 9.7 L 9.4 L
[2022-05-30] MEDS: TIZANIDINE HCL 4 MG TABLET PO (14:58)
--- NOTE | 2022-05-30 17:37 | PC.NURSE ---
PATIENT PLEASANT AND COOPERATIVE, UP AD TRESSA WITH STEADY GAIT, AFEBRILE, CHRONIC BACK/LEG PAIN 5-02/16 BEING MANAGED WITH PRN MORPHINE, TELE SHOWING NSR TO SINUS TACH, TOLERATING REGULAR DIET NO NAUSEA.
[2022-05-30] MEDS: lamoTRIgine 100 MG TABLET 200 MG PO (21:32)
[2022-05-30] MEDS: QUETIAPINE 100 MG TABLET 200 MG PO (21:32)
[2022-05-30] MEDS: TRAZODONE HCL 50 MG TABLET 200 MG PO (21:32)
[2022-05-31 03:00] VITALS: BP 123/72; PULSE 90; RESP 20; TEMP 36.6; O2SAT 93
--- NOTE | 2022-05-31 06:19 | PC.NURSE ---
SHIFT NOTE : Pt pleasant, A&O. Afebrile, oxygen saturations >90% on room air, tele reads NSR, ST when up and moving. PRN Morphine given x1 for chronic pain, pt reported relief. Pt up independent, tolerating well. Wright patent and draining. Plan to d/c home today.
[2022-05-31 07:30] VITALS: PULSE 89
[2022-05-31 08:39] VITALS: BP 139/75; PULSE 97; RESP 20; TEMP 36.9; O2SAT 95
[2022-05-31] MEDS: SERTRALINE 50 MG TABLET 150 MG PO (09:09)
[2022-05-31] MEDS: cefTRIAXone 2 GM in 0.9 % SODIUM CHLORIDE Mini-bag 100 ML IVPB (09:09)
[2022-05-31] MEDS: SODIUM CHLORIDE 0.9 % (FLUSH) 10 ML SYRINGE 5 ML IVF (09:10)
[2022-05-31] MEDS: PREGABALIN 75 MG CAPSULE PO (09:10)
[2022-05-31] MEDS: NYSTATIN CREAM 30 GM 1 APPLIC TOPICAL (09:11)
--- NOTE | 2022-05-31 09:21 | PC.SOCIAL ---
Pt. will discharge today back to the [facility] and will resume his nursing and home care through [facility]. The [facility] van will arrive at 11am to transport.
[2022-05-31 09:51] LABS: Hemoglobin* 10.3 gm/dL (13.5-17.5)
[2022-05-31 10:46] VITALS: PULSE 89; RESP 20; TEMP 36.9
--- NOTE | 2022-05-31 11:06 | PC.NURSE ---
Discharge: Patient pleasant and cooperative. Up independently, some assistance with dressing, able to perform most ADLs himself. Tolerating regular diet. Wright cath in place and patent. Vitals stable and WNL. Received one dose of IV antibiotics this morning prior to discharge. Patient discharged from hospital @ 1103 via wheelchair, transportation picked up from ED entrance.
--- NOTE | 2022-05-31 16:40 | PM.DS1 ---
DS: Providers Provider Time Seen by Provider: 08:00 Date Seen: 05/31/22 Date of admission: 05/27/22 07:44 Primary care physician: Oliva Delong DO Admitting Clinician: Hosea Zhao MD Consults: 05/27/22 01:43 Consult to Physical Therapy [CONS] Routine Comment: Reason(s) for PT Consult:: Weakness Any Restrictions?:: Unknown 05/28/22 07:46 Consult to Occupational Therapy [CONS] Routine Comment: Reason(s) for OT Consult:: Evaluate and Treat Any Restrictions?:: No Restrictions Consult to Physical Therapy [CONS] Routine Comment: Reason(s) for PT Consult:: Evaluate and Treat Any Restrictions?:: No Restrictions 05/28/22 13:17 Consult to Physician [CONS] Routine Comment: Consulting Provider: Kennedi Allred Has provider been notified: Yes Attending Physician on discharge: Scottie Key MD Date of Discharge: 05/31/22 DS: Diagnosis Discharge Diagnosis (1) Fever: Status: Acute (2) Sepsis: Status: Acute Problem details: Suspect secondary to urinary tract infection (3) Urinary tract infection, E. coli: Status: Acute Problem details: Pansensitive (4) E coli bacteremia: Status: Acute Problem details: Pansensitive (5) Leukopenia: Status: Acute Problem details: suspect secondary to sepsis (6) Anemia: Status: Chronic Problem details: Hgb 9.7 on 05/02/22 (7) Chronic idiopathic thrombocytopenia: Status: Chronic Problem details: Plt 83 on 05/02/22 (8) Dark stools: Status: Acute (9) Bright red blood per rectum: Status: Acute (10) Hypokalemia: Status: Acute (11) Bipolar disorder: Status: Chronic (12) Suprapubic catheter: Status: Chronic Problem details: This is certainly contributing to his urinary tract infection and bacteremia. (13) CVA (cerebral vascular accident): Status: Chronic (14) Diabetes: Status: Chronic Problem details: He elects to not treat with hypoglycemic or anti-hyperglycemic agents. (15) Borderline personality disorder in adult: Status: Chronic (16) Obesity: Status: Chronic (17) RAPHAEL (obstructive sleep apnea): Status: Chronic (18) Chronic suprapubic catheter: Status: Chronic DS: Summary Hospital Course Hospital Course: Patient presented with fever. He met sepsis criteria. Found to have E Coli UTI and bacteremia, organism pansensitive. Treated with IV ceftriaxone the entire time he was in hospital. Improved. Changed the suprapubic catheter on second day of hospitalization. Had episodes melena and bright red blood per rectum. Hemoglobin remained stable around 9 g/dl. He declined further assessment, such as with colonoscopy and esophagogastroduodenoscopy. Had no further episodes the last 2 days of hospitalization. Remained hemodynamically stable. He continues to express desire for palliative cares only. Time Spent with Patient Time attestation: Total time spent providing and/or coordinating discharge services: Exam Narrative: Exam Narrative: No acute distress.? Appears chronically ill.? Pale complexion. Articulate, cooperative, friendly.? Mood and affect are congruent. Alert, oriented to self, place, time, situation. Full neck.? Tracheostomy in place. Lungs clear to auscultation, save decreased breath sounds in both bases. Heart tones with regular rhythm, normal S1-S2, no murmur, gallop, or rub.? Barrel shaped chest. No CVA tenderness to thumping in his back. Abdomen is obese with active bowel sounds, soft, nontender. Trace edema pretibially bilaterally. Const: Vital Signs, click to edit/add: Vital Signs - 24 hr 05/30/22 19:50 05/30/22 23:00 05/30/22 23:00 Temperature 98.5 F Pulse Rate 85 Pulse Rate [Pulse Oximeter] 86 86 Respiratory Rate 20 Blood Pressure [Le ft Arm] 145/85 H Pulse Oximetry 94 Oxygen Delivery Me thod Room Air Oxygen Flow Rate 0 05/30/22 23:00 05/30/22 23:00 05/31/22 03:00 Temperature 97.8 F 97.9 F Pulse Rate Pulse Rate [Pulse Oximeter] 90 90 Respiratory Rate 18 18 20 Blood Pressure [Le ft Arm] 109/73 123/72 Pulse Oximetry 94 94 93 Oxygen Delivery Me thod Room Air Room Air Room Air Oxygen Flow Rate 0 0 0 05/31/22 07:30 05/31/22 08:39 05/31/22 08:39 Temperature 98.5 F Pulse Rate 89 Pulse Rate [Pulse Oximeter] 97 Respiratory Rate 20 20 Blood Pressure [Le ft Arm] 139/75 Pulse Oximetry 95 95 Oxygen Delivery Me thod Room Air Room Air Oxygen Flow Rate 05/31/22 10:46 Temperature 98.5 F Pulse Rate 89 Pulse Rate [Pulse Oximeter] Respiratory Rate 20 Blood Pressure [Le ft Arm] Pulse Oximetry Oxygen Delivery Me thod Oxygen Flow Rate Documenting provider has reviewed patient's vital signs: yes DS: Data Data Completed and Pending Labs on day of discharge: Labs from last 24 hours 05/31/22 09:22 Hgb 10.3 L Preliminary micro results at discharge 05/30/22 09:28 Blood Culture - Preliminary Blood NO GROWTH AFTER 24 HOURS 05/30/22 09:23 Blood Culture - Preliminary Blood NO GROWTH AFTER 24 HOURS 05/26/22 06:15 Blood Culture - Preliminary Blood NO GROWTH AFTER 96 HOURS 05/26/22 06:28 Blood Culture - Preliminary Blood NO GROWTH AFTER 96 HOURS Discharge Plan Discharge Disposition: Home Health Service Date of Admission: 05/27/22 07:44 Attending Provider on Discharge: Scottie Key Consulting Providers: Kennedi Allred Primary Care Provider: Oliva Delong Condition: Improved Anticipated Discharge Date/Time: 05/31/22 11:00 Discharge Medications: New amoxicillin 500 mg capsule 1,000 mg PO Q8H Qty: 30 0RF Lactobacillus acidophilus 1 billion cell tablet 1,000 mmu cells PO BID Qty: 60 2RF Continued nystatin 100,000 unit/gram cream 1 applic TOPICAL BID Label Comments: APPLY TO ABDOMINAL SKIN FOLDS TWICE DAILY UNTIL RESOLVED. THEN MAY USE 1-2 TIMES A WEEK FOR PREVENTION morphine 30 mg tablet 30 mg PO Q6H PRN Label Comments: TAKE ONE TABLET BY MOUTH EVERY SIX HOURS NEEDED, MAX 3/DAY. SHOULD LAST AT LEAST 30 DAYS quetiapine 100 mg tablet 200 mg PO HS Label Comments: TAKE 2 TABLETS (200 MG) BY MOUTH AT BEDTIME. sertraline 50 mg tablet 150 mg PO DAILY Label Comments: TAKE 2 TABLETS (100 MG) BY MOUTH ONCE DAILY. lamotrigine 200 mg tablet 200 mg PO HS Label Comments: TAKE 1 TABLET (200 MG) BY MOUTH AT BEDTIME. metronidazole 0.75 % cream 1 applic TOPICAL BID Label Comments: APPLY TOPICALLY TO AFFECTED AREA(S) 2 TIMES DAILY. FOR FACE ROSACEA tizanidine 2 mg tablet 2 - 4 mg PO Q8H PRN Label Comments: TAKE 1-2 TABLETS (2-4 MG) BY MOUTH EVERY 8 HOURS IF NEEDED. pregabalin 75 mg capsule 75 mg PO BID Label Comments: TAKE 1 CAPSULE (75 MG) BY MOUTH 2 TIMES DAILY. cyanocobalamin (vitamin B-12) 1,000 mcg/mL solution 1,000 mcg IM Q4W fluticasone propionate 50 mcg/actuation spray,suspension 2 spray INTRANASAL DAILY Label Comments: INHALE 2 SPRAYS TO BOTH NOSTRILS ONCE DAILY. trazodone 100 mg tablet 200 mg PO HS Label Comments: TAKE 2 TABLETS (200 MG) BY MOUTH AT BEDTIME IF NEEDED FOR SLEEP. ciprofloxacin-dexamethasone 0.3-0.1 % drops,suspension See Rx Instructions .ROUTE .COMPLEX Label Comments: INSTILL 4 DROPS INTO THE TRACHE SITE TWICE DAILY FOR 7 DAYS Rx Instructions: 4 DROPS TO TRACH SITE TWICE DAILY FOR 7 DAYS NEEDED; ondansetron 4 mg tablet,disintegrating 4 mg PO Q8H PRN Label Comments: PLACE 1 TABLET ON THE TONGUE EVERY 8 HOURS IF NEEDED FOR NAUSEA AND VOMITING. Discharge Orders: Discharge Order (Routine); Ordered 05/31/22 Ordered By: Scottie Key Patient Education: Amoxicillin (By mouth), Probiotic (By mouth), How to Care for Your Suprapubic Catheter (GEN), Catheter-associated Urinary Tract Infection (GEN) Activity Level: Activity as Tolerated Discharge Diet: Diabetic Follow Up Appointments: Oliva Delong DO [Primary Care Provider] - 06/11/22 9:50 am (Follow-up with pre-visit UA/UC and CBC - check in with lab prior to appointment) Forms: [facility] Info Instructions Hospital Course: Patient presented with fever. He met sepsis criteria. Found to have E Coli UTI and bacteremia, organism pansensitive. Treated with IV ceftriaxone the entire time he was in hospital. Improved. Changed the suprapubic catheter on second day of hospitalization. Had episodes melena and bright red blood per rectum. Hemoglobin remained stable around 9 g/dl. He declined further assessment, such as with colonoscopy and esophagogastroduodenoscopy. Had no further episodes the last 2 days of hospitalization. Remained hemodynamically stable. He continues to express desire for palliative cares only.
== END 2022-05-31 11:03 | disposition home health service (06) | DRG 872 ==
LOC: ED 16:48 → MEDSURG 19:06
PROVIDERS: Internal Medicine; Admitting Provider Internal Medicine; Emergency Provider Family Medicine; PCP Family Medicine; Visit Provider Family Medicine
DX: A41.9 Sepsis, unspecified organism (principal); N39.0 Urinary tract infection, site not specified; T83.511A Infection and inflammatory reaction due to indwelling urethral catheter, initial encounter; D69.3 Immune thrombocytopenic purpura; K62.5 Hemorrhage of anus and rectum; Z68.43 Body mass index [BMI] 50.0-59.9, adult; D64.9 Anemia, unspecified; B96.20 Unspecified Escherichia coli [E. coli] as the cause of diseases classified elsewhere; E87.6 Hypokalemia; F31.9 Bipolar disorder, unspecified; G47.33 Obstructive sleep apnea (adult) (pediatric); F60.3 Borderline personality disorder; E11.9 Type 2 diabetes mellitus without complications; Z93.0 Tracheostomy status; Z98.84 Bariatric surgery status; G89.29 Other chronic pain; Z86.711 Personal history of pulmonary embolism; Z86.73 Personal history of transient ischemic attack (TIA), and cerebral infarction without residual deficits; Z87.891 Personal history of nicotine dependence
CPT/HCPCS: 36415; 71046; 71260; 80048; 80053; 81001; 83605; 83735; 83880; 84145; 85018; 85025; 85610; 85651; 86140; 87040; 87086; 87186; 87631; 87804; 93005; 94761; 97161; 97530; 99284; 99285; G0378; A9270; J0696; J2060; J2405; J2543; J3370; J7030; J7050; J7120; Q9967

== ENCOUNTER 2022-08-07 13:10 | Outpatient (CLI) | payer MEDICARE, MEDICAID, SELFPAY | END 2022-08-07 13:11 | disposition home or self-care (01) | LOC: AMB 08-20 05:34 | PROVIDERS: PCP Family Medicine; Visit Provider Family Medicine | DX: R31.9 Hematuria, unspecified (principal) | CPT/HCPCS: A0425; A0427 ==

== ENCOUNTER 2022-08-07 13:42 | Emergency (ER) | payer MEDICARE, MEDICAID, SELFPAY ==
[2022-08-07 13:50] VITALS: BP 148/71; PULSE 70; RESP 18; TEMP 36.4; O2SAT 96; BMI 54.2
--- NOTE | 2022-08-07 13:57 | CRLHL7_ITS ---
For Patients: As a result of the Cures Act, medical imaging exams and procedure reports are released immediately into your electronic medical record. You may view this report before your referring provider. If you have questions, please contact your health care provider. INDICATION: Hemoptysis. TECHNIQUE: Chest 2 views. COMPARISON: 05/26/2022. FINDINGS: Lines and tubes: Tracheostomy tube. Cardiovascular and mediastinum: Unremarkable. Lungs and pleural spaces: Increased left lower lobe lung markings. Left basilar platelike opacity likely represents scarring versus atelectasis. No pleural effusion or pneumothorax. Bones and soft tissues: No significant findings. IMPRESSION: Increased left lower lobe lung markings could represent infection versus aspiration. Dictated by Blaze Cross MD @ 08/07/2022 3:04:37 PM (Electronically Signed)
[2022-08-07 14:00] VITALS: BP 146/78; PULSE 73; O2SAT 95
--- NOTE | 2022-08-07 14:00 | ED_ITS ---
HPI - General Adult General Chief complaint: Urogenital Problems, Male Stated complaint: Catheter problems Time Seen by Provider: 08/07/22 13:51 Source: patient Mode of arrival: EMS Limitations: no limitations History of Present Illness HPI narrative: Patient is a 57-year-old gentleman, with multiple medical issues, presents here with 2 complaints 1 is blood within his suprapubic catheter bag, and some blood clots that he has passed per penis. He has had 2 episodes with this, he has documented that is with this phone, did show me. No fevers or chills, no nausea no vomiting, notable bleeding left sided leg discomfort, he also noted yesterday that he had some blood when he checked his trach. This was not associated with a huge coughing spell but he was coughing a little bit, he has had no blood in his trach today. Denies any chest pain, nausea vomiting, abdominal issues. Treatments prior to arrival: none Related Data Home Medications Medication Instructions Recorded Confirmed cyanocobalamin (vitamin B-12) 1,000 mcg IM Q4W 05/26/22 05/26/22 1,000 mcg/mL injection solution fluticasone propionate 50 2 spray intranasal DAILY 05/26/22 05/26/22 mcg/actuation nasal spray,suspension lamotrigine 200 mg tablet 200 mg PO HS 05/26/22 05/26/22 metronidazole 0.75 % topical cream 1 applic topical BID 05/26/22 05/27/22 morphine 30 mg immediate release 30 mg PO Q6H PRN 05/26/22 05/26/22 tablet nystatin 100,000 unit/gram topical 1 applic topical BID 05/26/22 05/26/22 cream pregabalin 75 mg capsule 75 mg PO BID 05/26/22 05/26/22 quetiapine 100 mg tablet 200 mg PO HS 05/26/22 05/26/22 sertraline 50 mg tablet 150 mg PO DAILY 05/26/22 05/26/22 tizanidine 2 mg tablet 2 - 4 mg PO Q8H PRN 05/26/22 05/26/22 trazodone 100 mg tablet 200 mg PO HS 05/26/22 05/26/22 ciprofloxacin 0.3 %-dexamethasone See Rx Instructions .Route .COMPLEX 05/27/22 05/27/22 0.1 % ear drops,suspension ondansetron 4 mg disintegrating 4 mg PO Q8H PRN 05/27/22 05/27/22 tablet Previous Rx's Medication Instructions Recorded Lactobacillus acidophilus 1 1,000 mmu cells PO BID #60 tabs 05/31/22 billion cell tablet amoxicillin 500 mg capsule 1,000 mg PO Q8H #30 caps 05/31/22 cephalexin 500 mg capsule 500 mg PO TID 7 days #21 caps 08/07/22 Allergies Allergy/AdvReac Type Severity Reaction Status Date / Time latex Allergy Verified 05/26/22 15:41 aspirin AdvReac Verified 05/26/22 15:41 codeine AdvReac Verified 05/26/22 15:41 Review of Systems Status of ROS: Reports: 10 or more systems reviewed and unremarkable except as noted in History and below [facility] [facility] History Acute UTI Anemia Bipolar disorder Borderline personality disorder in adult Chronic idiopathic thrombocytopenia Chronic idiopathic thrombocytopenia Chronic pain Chronic pain syndrome CVA (cerebral vascular accident) Diabetes Fever History of deep venous thrombosis or pulmonary embolus History of suicide attempt Iron deficiency anemia following bariatric surgery Migraine Migraines Obesity RAPHAEL (obstructive sleep apnea) Pulmonary embolism Suprapubic catheter Surgical History Gastric bypass status for obesity History of cholecystectomy History of lumbar surgery History of total right knee replacement (TKR) S/P ACL repair Family History Other Chronic idiopathic thrombocytopenia Social History Smoking Status: Former smoker What tobacco products do you use: cigarettes Years smoked: 10 Smoking quit date/years: <= 15 years ago Do you use any of these nicotine containing products: None Second hand tobacco smoke exposure: No How often do you have a drink containing alcohol: 2-4 times a month How many standard drinks containing alcohol do you have on a typical day: 1 or 2 How often do you have six or more drinks on one occasion: Never AUDIT-C Alcohol total score: 2 Non-prescribed substance use: denies use Caffeine: Yes (coffee) service: No Exam Narrative: Exam Narrative: Patient is seen in room 6, he is morbidly obese alert oriented x3 speaking to me normally. Not on oxygen. Pupils are equal round reactive to light, oropharynx is normal, chest is clear bilaterally, with distantly faint sounds, appear normal. Heart sounds no clicks murmurs or gallops S1-S2 are normal, abdomen is morbidly obese, no tenderness to palpation, suprapubic catheter appears normal, arising, I am unable to really see his penis, as this is within his folds, but I can see no blood protruding from this, no tenderness to palpation, skin reveals no petechiae rashes. Const: Vital Signs, click to edit/add: Vital Signs - 24 hr 08/07/22 13:50 Temperature 97.5 F L Pulse Rate [Right Pulse Oximeter] 70 Respiratory Rate 18 Blood Pressure [Ri ght Upper Arm] 148/71 H Pulse Oximetry 96 Oxygen Delivery Me thod Room Air Documenting provider has reviewed patient's vital signs: yes Course Course Hospital Course: Patient's labs are fairly stable, his urinalysis does show he may have a UTI although this is urine with indwelling catheter, he does have a history of previous sepsis, from E coli in looking back these have all been pansensitive, I suspect that he may have a bit of hemorrhagic cystitis, given the blood, and treatment with Keflex we will try. In regards to his hemoptysis there does not seem to be a lot of that rate now there is some streaking in his lower lungs on x-ray, and if this is infectious we can also use the Keflex. He does have thrombocytopenia which is chronic and also anemia which is chronic, both her really unchanged. Coags remain unchanged also. Vital Signs Vital signs: Initial Vital Signs Temperature 97.5 F L 08/07/22 13:50 Temperature Source Temporal Artery Scan 08/07/22 13:50 Pulse Rate 70 08/07/22 13:50 Respiratory Rate 18 08/07/22 13:50 Blood Pressure 148/71 H 08/07/22 13:50 Blood Pressure Mean 96 08/07/22 13:50 Blood Pressure Position Sitting 08/07/22 13:50 Pulse Oximetry 96 08/07/22 13:50 Oxygen Delivery Method 08/07/22 13:50 Vital Signs Temperature 97.5 F L 08/07/22 13:50 Pulse Rate 70 08/07/22 13:50 Respiratory Rate 18 08/07/22 13:50 Blood Pressure 148/71 H 08/07/22 13:50 Pulse Oximetry 96 08/07/22 13:50 Oxygen Delivery Method 08/07/22 13:50 Temperature 97.5 F L 08/07/22 13:50 Pulse Rate 70 08/07/22 13:50 Respiratory Rate 18 08/07/22 13:50 Blood Pressure 148/71 H 08/07/22 13:50 Pulse Oximetry 96 08/07/22 13:50 Oxygen Delivery Method 08/07/22 13:50 Medical Decision Making MDM Narrative Medical decision making narrative: Given the past history, I suspect that this may be related to a bit of UTI, I will do a chest x-ray, also he does have a history of COVID last week, this should really affect his blood parameters, but we will do blood test to further delineate this also. Assessment hemoptysis with history of hematuria Lab Data Labs: Lab Results 08/07/22 08/07/22 08/07/22 Range/Units 14:15 14:28 14:28 WBC 3.29 L (4.50-11.00) K/uL RBC 4.59 (4.30-5.90) m/uL Hgb 9.8 L (13.5-17.5) gm/dL Hct 33.6 L (37.0-53.0) % MCV 73 L (80-100) fL MCH 21 L (26-34) pg MCHC 29 L (32-36) gm/dL RDW Coeff of Veren[place] 18.0 H (11.5-15.5) % Plt Count 90 L (140-440) K/uL Neut % (Auto) 59.3 (42.0-72.0) % Lymph % (Auto) 23.4 (20-44) % [place] % (Auto) 9.1 (0.0-11.0) % Eos % (Auto) 7.0 (0.0-7.0) % Baso % (Auto) 0.6 (0.0-3.0) % Neut # (Auto) 2.00 (1.7-7.0) K/uL Lymph # (Auto) 0.80 L (0.90-2.90) K/uL [place] # (Auto) 0.30 (0.00-0.90) K/UL Eos # (Auto) 0.20 (0.00-0.50) K/uL Baso # (Auto) 0.00 (0.00-0.30) K/uL Abs Immat Gran (auto) 0.00 (0.00-0.30) K/uL Imm/Tot Granulo (auto) 0.6 % INR 1.23 H (0.91-1.10) APTT 31 (23-33) Seconds Sodium (135-149) mmol/L Potassium (3.6-5.1) mmol/L Chloride (96-114) mmol/L Carbon Dioxide (20-32) mmol/L BUN (7-30) mg/dL Creatinine (0.5-1.5) mg/dL Estimated Creat Clear Estimated GFR ml/min Glucose (60-115) mg/dL Calcium (8.4-10.6) mg/dL Urine Color Brown A (Yellow) Urine Appearance Cloudy A (Clear) Urine pH 7.0 (5.0-8.5) Ur Specific [place] 1.020 (1.000-1.030) Urine Protein 1+ A (Negative) Urine Glucose (UA) Negative (Negative) Urine Ketones Negative (Negative) Urine Blood 3+ A (Negative) Urine Nitrite Positive A (Negative) Urine Bilirubin Negative (Negative) Urine Urobilinogen 2.0 A (0.2-1.0) Ur Leukocyte Esterase Trace A (Negative) Urine RBC >100 A (0-2) Urine WBC 10-25 A (0-5) Ur Squamous Epith Cells None (None-Few) Urine Bacteria Many A (None) 08/07/22 Range/Units 14:28 WBC (4.50-11.00) K/uL RBC (4.30-5.90) m/uL Hgb (13.5-17.5) gm/dL Hct (37.0-53.0) % MCV (80-100) fL MCH (26-34) pg MCHC (32-36) gm/dL RDW Coeff of Verenice (11.5-15.5) % Plt Count (140-440) K/uL Neut % (Auto) (42.0-72.0) % Lymph % (Auto) (20-44) % [place] % (Auto) (0.0-11.0) % Eos % (Auto) (0.0-7.0) % Baso % (Auto) (0.0-3.0) % Neut # (Auto) (1.7-7.0) K/uL Lymph # (Auto) (0.90-2.90) K/uL [place] # (Auto) (0.00-0.90) K/UL Eos # (Auto) (0.00-0.50) K/uL Baso # (Auto) (0.00-0.30) K/uL Abs Immat Gran (auto) (0.00-0.30) K/uL Imm/Tot Granulo (auto) % INR (0.91-1.10) APTT (23-33) Seconds Sodium 140 (135-149) mmol/L Potassium 4.0 (3.6-5.1) mmol/L Chloride 109 (96-114) mmol/L Carbon Dioxide 29 (20-32) mmol/L BUN 5 L (7-30) mg/dL Creatinine 0.7 (0.5-1.5) mg/dL Estimated Creat Clear 129.33 Estimated GFR 108 ml/min Glucose 106 (60-115) mg/dL Calcium 8.2 L (8.4-10.6) mg/dL Urine Color (Yellow) Urine Appearance (Clear) Urine pH (5.0-8.5) Ur Specific [place] (1.000-1.030) Urine Protein (Negative) Urine Glucose (UA) (Negative) Urine Ketones (Negative) Urine Blood (Negative) Urine Nitrite (Negative) Urine Bilirubin (Negative) Urine Urobilinogen (0.2-1.0) Ur Leukocyte Esterase (Negative) Urine RBC (0-2) Urine WBC (0-5) Ur Squamous Epith Cells (None-Few) Urine Bacteria (None) Discharge Plan Discharge Clinical Impression: Chronic suprapubic catheter, Urinary tract infection, Acute hemorrhagic cystitis, Hemoptysis, unspecified Condition: Stable Instructions: Urinary Tract Infection in Men (DC), Hemoptysis (ED) Additional Instructions: Home rest antibiotics as directed follow-up with signs symptoms of worsening Prescriptions: New cephalexin 500 mg capsule 500 mg PO TID 7 Days Qty: 21 0RF No Action nystatin 100,000 unit/gram cream 1 applic TOPICAL BID Label Comments: APPLY TO ABDOMINAL SKIN FOLDS TWICE DAILY UNTIL RESOLVED. THEN MAY USE 1-2 TIMES A WEEK FOR PREVENTION morphine 30 mg tablet 30 mg PO Q6H PRN Label Comments: TAKE ONE TABLET BY MOUTH EVERY SIX HOURS NEEDED, MAX 3/DAY. SHOULD LAST AT LEAST 30 DAYS quetiapine 100 mg tablet 200 mg PO HS Label Comments: TAKE 2 TABLETS (200 MG) BY MOUTH AT BEDTIME. sertraline 50 mg tablet 150 mg PO DAILY Label Comments: TAKE 2 TABLETS (100 MG) BY MOUTH ONCE DAILY. lamotrigine 200 mg tablet 200 mg PO HS Label Comments: TAKE 1 TABLET (200 MG) BY MOUTH AT BEDTIME. metronidazole 0.75 % cream 1 applic TOPICAL BID Label Comments: APPLY TOPICALLY TO AFFECTED AREA(S) 2 TIMES DAILY. FOR FACE ROSACEA tizanidine 2 mg tablet 2 - 4 mg PO Q8H PRN Label Comments: TAKE 1-2 TABLETS (2-4 MG) BY MOUTH EVERY 8 HOURS IF NEEDED. pregabalin 75 mg capsule 75 mg PO BID Label Comments: TAKE 1 CAPSULE (75 MG) BY MOUTH 2 TIMES DAILY. cyanocobalamin (vitamin B-12) 1,000 mcg/mL solution 1,000 mcg IM Q4W fluticasone propionate 50 mcg/actuation spray,suspension 2 spray INTRANASAL DAILY Label Comments: INHALE 2 SPRAYS TO BOTH NOSTRILS ONCE DAILY. trazodone 100 mg tablet 200 mg PO HS Label Comments: TAKE 2 TABLETS (200 MG) BY MOUTH AT BEDTIME IF NEEDED FOR SLEEP. ciprofloxacin-dexamethasone 0.3-0.1 % drops,suspension See Rx Instructions .ROUTE .COMPLEX Label Comments: INSTILL 4 DROPS INTO THE TRACHE SITE TWICE DAILY FOR 7 DAYS Rx Instructions: 4 DROPS TO TRACH SITE TWICE DAILY FOR 7 DAYS NEEDED; ondansetron 4 mg tablet,disintegrating 4 mg PO Q8H PRN Label Comments: PLACE 1 TABLET ON THE TONGUE EVERY 8 HOURS IF NEEDED FOR NAUSEA AND VOMITING. amoxicillin 500 mg capsule 1,000 mg PO Q8H Qty: 30 0RF Lactobacillus acidophilus 1 billion cell tablet 1,000 mmu cells PO BID Qty: 60 2RF Follow Up/Referrals: Oliva Delong DO [Primary Care Provider] - Stand Alone Forms: [facility]
[2022-08-07 14:42] LABS: Basophils Percent Auto 0.6 % (0.0-3.0); Hematocrit 33.6 % (37.0-53.0); Hemoglobin* 9.8 gm/dL (13.5-17.5); Immature Granulocytes Pct Auto 0.6 %; Lymphocytes Percent Auto 23.4 % (20-44); Mean Corpuscular HGB Conc 29 gm/dL (32-36); Mean Corpuscular Hemoglobin 21 pg (26-34); Mean Corpuscular Volume 73 fL (80-100); Monocytes Percent Auto 9.1 % (0.0-11.0); Neutrophils Percent Auto 59.3 % (42.0-72.0); Platelet Count* 90 K/uL (140-440); Red Blood Count 4.59 m/uL (4.30-5.90); White Blood Count* 3.29 K/uL (4.50-11.00)
[2022-08-07 14:44] LABS: Slide Review Reflex No
[2022-08-07 14:55] LABS: Chloride* 109 mmol/L (96-114); Sodium* 140 mmol/L (135-149)
[2022-08-07 14:56] LABS: Appearance Urine Cloudy (Clear); Bilirubin Urine Negative (Negative); Blood Urine 3+ (Negative); Color Urine Brown (Yellow); Glucose Urine Negative (Negative); Ketones Urine Negative (Negative); Leukocyte Esterase Urine Trace (Negative); Nitrite Urine Positive (Negative); Protein Urine 1+ (Negative)
[2022-08-07 14:58] LABS: Carbon Dioxide* 29 mmol/L (20-32); Creatinine* 0.7 mg/dL (0.5-1.5); Est. Creatinine Clearance* 129.33; Estimated Glomerular Filt Rate 108 ml/min
[2022-08-07 14:59] LABS: Blood Urea Nitrogen* 5 mg/dL (7-30); Calcium* 8.2 mg/dL (8.4-10.6); Glucose* 106 mg/dL (60-115)
[2022-08-07 15:00] VITALS: BP 139/72; PULSE 76; O2SAT 95
[2022-08-07 15:01] LABS: INR 1.23 (0.91-1.10); Partial Thromboplastin Time* 31 Seconds (23-33); Prothrombin Time 16.3 Seconds
[2022-08-07 15:24] LABS: RBC Urine >100 (0-2)
[2022-08-07 15:25] LABS: Bacteria Urine Many
[2022-08-07 16:00] VITALS: BP 153/76; PULSE 85; O2SAT 96
[2022-08-07] MEDS: cephALEXin 500 MG CAPSULE PO (16:04)
--- NOTE | 2022-08-10 13:13 | ED.NURSE ---
Contacted patient to switch antibiotic to Amoxicillin per Dr. Gunn's orders. patient states that Dr. Riley called patient yesterday and placed patient on Augmentin. Dr. Gunn said that is okay and to follow up as needed. Pt stated that he is having some bleeding to his trach site. Pt was told to follow up to get this checked out as soon as possible. States, I dont really want to go back there because I felt like the physician yisel pooed me. Instructed patient that we are happy to see him and he should get checked out.
== END 2022-08-07 16:39 | disposition home or self-care (01) ==
PROVIDERS: Emergency Provider Family Medicine; PCP Family Medicine
DX: T83.091A Other mechanical complication of indwelling urethral catheter, initial encounter (principal); N30.01 Acute cystitis with hematuria; R04.2 Hemoptysis; Z87.891 Personal history of nicotine dependence; Z88.6 Allergy status to analgesic agent
CPT/HCPCS: 36415; 71046; 80048; 81001; 85025; 85610; 85730; 87086; 87186; 99284; A9270

== ENCOUNTER 2022-08-10 13:37 | Emergency (ER) | payer MEDICARE, MEDICAID, SELFPAY ==
[2022-08-10 13:46] VITALS: BP 173/84; PULSE 96; RESP 20; TEMP 36.4; O2SAT 94
--- NOTE | 2022-08-10 14:32 | CRLHL7_ITS ---
For Patients: As a result of the Century Cures Act, medical imaging exams and procedure reports are released immediately into your electronic medical record. You may view this report before your referring provider. If you have questions, please contact your health care provider. INDICATION: Hemoptysis heavy for 1 week. TECHNIQUE: CT chest was acquired with 95 mL Isovue 370 IV contrast. Coronal and sagittal reformats were generated. COMPARISON: None. FINDINGS: Artifact from the patient`s left side in contact with the gantry and patient`s left arm. : Thyroid: Unremarkable. Thoracic lymph nodes: No enlarged supraclavicular, mediastinal, hilar, or axillary lymph nodes. Mediastinum and esophagus: Unremarkable. Heart and vasculature: Unremarkable. Lungs: The endotracheal tube tip lies approximately 3.5 cm above the rebekah. The lungs are clear. No focal consolidations. Pleura: Unremarkable. Chest wall: Unremarkable. Upper abdomen: Unremarkable. Changes of Vishal-en-Y gastric bypass. Cholecystectomy. Bones: Unremarkable for age. IMPRESSION: No significant CT abnormality or findings to explain the cause of the patient`s symptoms. Please note that all CT scans at this facility use dose modulation, iterative reconstruction, and/or weight-based dosing when appropriate to reduce radiation dose to as low as reasonably achievable. Dictated by Aditya Santoyo MD @ 08/10/2022 4:18:14 PM (Electronically Signed)
--- NOTE | 2022-08-10 14:34 | ED.GENADULT ---
HPI - General Adult General Chief complaint: Unspecified Complaint, Adult Stated complaint: Bleeding through trach Time Seen by Provider: 08/10/22 14:21 History of Present Illness HPI narrative: This 57-year-old male has a trach for sleep apnea and has a chronic indwelling Wright catheter. He comes in reporting recurrent hemoptysis over the past couple days. He has small amounts of bright red blood that he spits upper coughs up. He does not have any cough. He states that he was diagnosed with COVID 13 days ago but was relatively asymptomatic. He does not report any shortness of breath but states there was enough bleeding in his trach tube that there was some impaired function of the tube. He does not report any lightheadedness or fevers. He did have hematuria and was treated with an antibiotic for urinary tract infection. He received a call yesterday stating that the culture results indicate change to a different antibiotic which she started just this morning. He is not on any blood thinners. Related Data Home Medications Medication Instructions Recorded Confirmed cyanocobalamin (vitamin B-12) 1,000 mcg IM Q4W 05/26/22 05/26/22 1,000 mcg/mL injection solution fluticasone propionate 50 2 spray intranasal DAILY 05/26/22 05/26/22 mcg/actuation nasal spray,suspension lamotrigine 200 mg tablet 200 mg PO HS 05/26/22 05/26/22 metronidazole 0.75 % topical cream 1 applic topical BID 05/26/22 05/27/22 morphine 30 mg immediate release 30 mg PO Q6H PRN 05/26/22 05/26/22 tablet nystatin 100,000 unit/gram topical 1 applic topical BID 05/26/22 05/26/22 cream pregabalin 75 mg capsule 75 mg PO BID 05/26/22 05/26/22 quetiapine 100 mg tablet 200 mg PO HS 05/26/22 05/26/22 sertraline 50 mg tablet 150 mg PO DAILY 05/26/22 05/26/22 tizanidine 2 mg tablet 2 - 4 mg PO Q8H PRN 05/26/22 05/26/22 trazodone 100 mg tablet 200 mg PO HS 05/26/22 05/26/22 ciprofloxacin 0.3 %-dexamethasone See Rx Instructions .Route .COMPLEX 05/27/22 05/27/22 0.1 % ear drops,suspension ondansetron 4 mg disintegrating 4 mg PO Q8H PRN 05/27/22 05/27/22 tablet Previous Rx's Medication Instructions Recorded Lactobacillus acidophilus 1 1,000 mmu cells PO BID #60 tabs 05/31/22 billion cell tablet amoxicillin 500 mg capsule 1,000 mg PO Q8H #30 caps 05/31/22 cephalexin 500 mg capsule 500 mg PO TID 7 days #21 caps 08/07/22 Allergies Allergy/AdvReac Type Severity Reaction Status Date / Time latex Allergy Verified 08/10/22 15:36 aspirin AdvReac Verified 08/10/22 15:36 codeine AdvReac Verified 08/10/22 15:36 Review of Systems Status of ROS: Reports: 10 or more systems reviewed and unremarkable except as noted in History and below Narrative: Constitutional: No fevers, no weight gain or loss. Eyes: No discharge. No vision changes. HENT: No congestion, no sore throat, no ear pain. Cardiovascular: No chest pain, no palpitations. Respiratory: No shortness of breath, no wheezes, no cough. Hemoptysis as described above. Gastrointestinal: No abdominal pain, no vomiting, no diarrhea. Genitourinary: Chronic Wright catheter with recent hematuria. Musculoskeletal: Normal range of motion. Skin: No rashes, no pruritis. Neurological: No dizziness, weakness, sensory change, speech change. Endo/Heme/Allergies: No bruising or bleeding. No polydipsia. Pysch: no suicidality, no anxiety, no insomnia. All other systems reviewed and are negative. [facility] PFS Medical History Acute UTI Anemia Bipolar disorder Borderline personality disorder in adult Chronic idiopathic thrombocytopenia Chronic idiopathic thrombocytopenia Chronic pain Chronic pain syndrome CVA (cerebral vascular accident) Diabetes Fever History of deep venous thrombosis or pulmonary embolus History of suicide attempt Iron deficiency anemia following bariatric surgery Migraine Migraines Obesity RAPHAEL (obstructive sleep apnea) Pulmonary embolism Suprapubic catheter Surgical History Gastric bypass status for obesity History of cholecystectomy History of lumbar surgery History of total right knee replacement (TKR) S/P ACL repair Family History Other Chronic idiopathic thrombocytopenia Social History Smoking Status: Former smoker What tobacco products do you use: cigarettes Years smoked: 10 Smoking quit date/years: <= 15 years ago Do you use any of these nicotine containing products: None Second hand tobacco smoke exposure: No How often do you have a drink containing alcohol: 2-4 times a month How many standard drinks containing alcohol do you have on a typical day: 1 or 2 How often do you have six or more drinks on one occasion: Never AUDIT-C Alcohol total score: 2 Non-prescribed substance use: denies use Caffeine: Yes (coffee) service: No Exam Narrative: Exam Narrative: Constitutional: Well-developed, well-nourished, no acute distress. HEENT: Normocephalic, atraumatic. A tracheostomy is in place and seems to be functioning properly. The patient uses this for sleep apnea and is able to speak can breathe normally. Neck: Normal range of motion. Nontender. Supple. Heart: Regular. No murmurs. Normal rate. Intact distal pulses. Lungs: Clear to auscultation. No chest discomfort. No wheezes, rhonchi, or rales. Abdomen: Normal bowel sounds. Nontender. No rebound tenderness. Genitalia: Deferred. Back: No midline tenderness. Normal range of motion. Extremities: Normal range of motion. No injury. Skin: Intact. No rash. Warm. No erythema or pallor. Neurologic: No altered sensation. No weakness. Alert and oriented. Psychiatric: No suicidality. No anxiety or depression. No insomnia. Nursing notes and vitals signs are reviewed. Const: Vital Signs, click to edit/add: Vital Signs - 24 hr 08/10/22 13:46 Temperature 97.6 F Pulse Rate [Right Pulse Oximeter] 96 Respiratory Rate 20 Blood Pressure [Ri ght Forearm] 173/84 H Pulse Oximetry 94 Oxygen Delivery Me thod Room Air Course Vital Signs Vital signs: Initial Vital Signs Temperature 97.6 F 08/10/22 13:46 Temperature Source Temporal Artery Scan 08/10/22 13:46 Pulse Rate 96 08/10/22 13:46 Respiratory Rate 20 08/10/22 13:46 Blood Pressure 173/84 H 08/10/22 13:46 Blood Pressure Mean 113 08/10/22 13:46 Blood Pressure Position Sitting 08/10/22 13:46 Pulse Oximetry 94 08/10/22 13:46 Oxygen Delivery Method 08/10/22 13:46 Vital Signs Temperature 97.6 F 08/10/22 13:46 Pulse Rate 96 08/10/22 13:46 Respiratory Rate 20 08/10/22 13:46 Blood Pressure 173/84 H 08/10/22 13:46 Pulse Oximetry 94 08/10/22 13:46 Oxygen Delivery Method 08/10/22 13:46 Temperature 97.6 F 08/10/22 13:46 Pulse Rate 96 08/10/22 13:46 Respiratory Rate 20 08/10/22 13:46 Blood Pressure 173/84 H 08/10/22 13:46 Pulse Oximetry 94 08/10/22 13:46 Oxygen Delivery Method 08/10/22 13:46 Medical Decision Making MDM Narrative Medical decision making narrative: This patient comes in stating that he feels normal and comes in only because the phone nurse insisted that he come in for evaluation. He is currently taking an antibiotic for urinary tract infection. He shows me some photos and a few tissues of some red tinged fluid coming from his tracheostomy. He is not currently coughing and shows no sign of active bleeding. An IV was established and labs were drawn. His labs returned with a hemoglobin that is normal for in range for him at 9.6. His platelets are 98 and his INR is 1.13. CT scan of the chest with IV contrast shows no acute findings. This patient is okay to go home and is encouraged to follow-up with [facility] or his primary physician. Lab Data Labs: Lab Results 08/10/22 08/10/22 08/10/22 Range/Units 14:45 14:45 14:45 WBC 3.71 L (4.50-11.00) K/uL RBC 4.47 (4.30-5.90) m/uL Hgb 9.6 L (13.5-17.5) gm/dL Hct 32.1 L (37.0-53.0) % MCV 72 L (80-100) fL MCH 22 L (26-34) pg MCHC 30 L (32-36) gm/dL RDW Coeff of Verenice 17.9 H (11.5-15.5) % Plt Count 98 L (140-440) K/uL Neut % (Auto) 58.0 (42.0-72.0) % Lymph % (Auto) 25.6 (20-44) % [place] % (Auto) 9.7 (0.0-11.0) % Eos % (Auto) 5.4 (0.0-7.0) % Baso % (Auto) 0.5 (0.0-3.0) % Neut # (Auto) 2.20 (1.7-7.0) K/uL Lymph # (Auto) 0.90 (0.90-2.90) K/uL [place] # (Auto) 0.40 (0.00-0.90) K/UL Eos # (Auto) 0.20 (0.00-0.50) K/uL Baso # (Auto) 0.00 (0.00-0.30) K/uL Abs Immat Gran (auto) 0.00 (0.00-0.30) K/uL Imm/Tot Granulo (auto) 0.8 % INR 1.32 H (0.91-1.10) Sodium 140 (135-149) mmol/L Potassium 3.8 (3.6-5.1) mmol/L Chloride 111 (96-114) mmol/L Carbon Dioxide 24 (20-32) mmol/L BUN 7 (7-30) mg/dL Creatinine 0.8 (0.5-1.5) mg/dL Estimated GFR 104 ml/min Glucose 118 H (60-115) mg/dL Calcium 8.2 L (8.4-10.6) mg/dL Imaging Data CT scan - chest: Radiologist's impression: No significant CT abnormality or findings to explain the cause of the patient`s symptoms. Discharge Plan Discharge Clinical Impression: Hemoptysis Patient Disposition: Home, Self-Care Condition: Stable Additional Instructions: Follow-up with [facility] or with primary physician. Return if worsening symptoms occur. Continue current plans otherwise as scheduled. Prescriptions: No Action cephalexin 500 mg capsule 500 mg PO TID 7 Days Qty: 21 0RF nystatin 100,000 unit/gram cream 1 applic TOPICAL BID Label Comments: APPLY TO ABDOMINAL SKIN FOLDS TWICE DAILY UNTIL RESOLVED. THEN MAY USE 1-2 TIMES A WEEK FOR PREVENTION morphine 30 mg tablet 30 mg PO Q6H PRN Label Comments: TAKE ONE TABLET BY MOUTH EVERY SIX HOURS NEEDED, MAX 3/DAY. SHOULD LAST AT LEAST 30 DAYS quetiapine 100 mg tablet 200 mg PO HS Label Comments: TAKE 2 TABLETS (200 MG) BY MOUTH AT BEDTIME. sertraline 50 mg tablet 150 mg PO DAILY Label Comments: TAKE 2 TABLETS (100 MG) BY MOUTH ONCE DAILY. lamotrigine 200 mg tablet 200 mg PO HS Label Comments: TAKE 1 TABLET (200 MG) BY MOUTH AT BEDTIME. metronidazole 0.75 % cream 1 applic TOPICAL BID Label Comments: APPLY TOPICALLY TO AFFECTED AREA(S) 2 TIMES DAILY. FOR FACE ROSACEA tizanidine 2 mg tablet 2 - 4 mg PO Q8H PRN Label Comments: TAKE 1-2 TABLETS (2-4 MG) BY MOUTH EVERY 8 HOURS IF NEEDED. pregabalin 75 mg capsule 75 mg PO BID Label Comments: TAKE 1 CAPSULE (75 MG) BY MOUTH 2 TIMES DAILY. cyanocobalamin (vitamin B-12) 1,000 mcg/mL solution 1,000 mcg IM Q4W fluticasone propionate 50 mcg/actuation spray,suspension 2 spray INTRANASAL DAILY Label Comments: INHALE 2 SPRAYS TO BOTH NOSTRILS ONCE DAILY. trazodone 100 mg tablet 200 mg PO HS Label Comments: TAKE 2 TABLETS (200 MG) BY MOUTH AT BEDTIME IF NEEDED FOR SLEEP. ciprofloxacin-dexamethasone 0.3-0.1 % drops,suspension See Rx Instructions .ROUTE .COMPLEX Label Comments: INSTILL 4 DROPS INTO THE TRACHE SITE TWICE DAILY FOR 7 DAYS Rx Instructions: 4 DROPS TO TRACH SITE TWICE DAILY FOR 7 DAYS NEEDED; ondansetron 4 mg tablet,disintegrating 4 mg PO Q8H PRN Label Comments: PLACE 1 TABLET ON THE TONGUE EVERY 8 HOURS IF NEEDED FOR NAUSEA AND VOMITING. amoxicillin 500 mg capsule 1,000 mg PO Q8H Qty: 30 0RF Lactobacillus acidophilus 1 billion cell tablet 1,000 mmu cells PO BID Qty: 60 2RF Follow Up/Referrals: Oliva Delong DO [Primary Care Provider] - Stand Alone Forms: [facility] Info Inst[facility]
[2022-08-10 14:53] LABS: Basophils Percent Auto 0.5 % (0.0-3.0); Eosinophils Percent Auto 5.4 % (0.0-7.0); Hematocrit 32.1 % (37.0-53.0); Hemoglobin* 9.6 gm/dL (13.5-17.5); Immature Granulocytes Pct Auto 0.8 %; Lymphocytes Percent Auto 25.6 % (20-44); Mean Corpuscular HGB Conc 30 gm/dL (32-36); Mean Corpuscular Hemoglobin 22 pg (26-34); Mean Corpuscular Volume 72 fL (80-100); Monocytes Percent Auto 9.7 % (0.0-11.0); Platelet Count* 98 K/uL (140-440); RDW Coefficient of Variation % 17.9 % (11.5-15.5); Red Blood Count 4.47 m/uL (4.30-5.90); White Blood Count* 3.71 K/uL (4.50-11.00)
[2022-08-10 15:13] LABS: Slide Review Reflex No
[2022-08-10 15:16] LABS: Chloride* 111 mmol/L (96-114); Potassium* 3.8 mmol/L (3.6-5.1); Sodium* 140 mmol/L (135-149)
[2022-08-10 15:19] LABS: Blood Urea Nitrogen* 7 mg/dL (7-30); Carbon Dioxide* 24 mmol/L (20-32); Creatinine* 0.8 mg/dL (0.5-1.5); Estimated Glomerular Filt Rate 104 ml/min
[2022-08-10 15:20] LABS: Calcium* 8.2 mg/dL (8.4-10.6); Glucose* 118 mg/dL (60-115)
[2022-08-10 15:47] LABS: INR 1.32 (0.91-1.10); Prothrombin Time 17.2 Seconds
== END 2022-08-10 16:35 | disposition home or self-care (01) ==
PROVIDERS: Emergency Provider Emergency Medicine Emergency Medical Services; PCP Family Medicine
DX: R04.2 Hemoptysis (principal)
CPT/HCPCS: 36415; 71260; 80048; 85025; 85610; 99284; 99285; Q9967

== ENCOUNTER 2022-09-22 21:46 | Outpatient (CLI) | payer MEDICARE, MEDICAID, SELFPAY | END 2022-09-22 21:47 | disposition home or self-care (01) | LOC: AMB 09-23 04:37 | PROVIDERS: PCP Family Medicine; Visit Provider Family Medicine | DX: R53.1 Weakness (principal); R42 Dizziness and giddiness; K92.1 Melena | CPT/HCPCS: A0425; A0427 ==

== ENCOUNTER 2022-09-22 22:37 | Emergency (ER) | payer MEDICARE, MEDICAID, SELFPAY ==
[2022-09-22 22:39] VITALS: BP 148/84; PULSE 92; RESP 16; TEMP 36.5; O2SAT 96; BMI 54.2
--- NOTE | 2022-09-22 22:54 | CRLHL7_ITS ---
For Patients: As a result of the Century Cures Act, medical imaging exams and procedure reports are released immediately into your electronic medical record. You may view this report before your referring provider. If you have questions, please contact your health care provider. INDICATION: Increasing left greater than right abdominal pain. COMPARISON: CT of the chest from 08/10/2022 CT of the abdomen and pelvis from 05/06/2019. TECHNIQUE: CT examination of the abdomen and pelvis was performed with the uneventful intravenous administration of 150 cc of Isovue 370 while 3 mm thick axial sections were obtained from the lung bases through the pubic symphysis. Oral contrast was not administered. Please note that all CT scans at this facility use dose modulation, iterative reconstruction, and/or weight-based dosing when appropriate to reduce radiation dose to as low as reasonably achievable. FINDINGS: In the abdomen, the liver has slightly decreased in size but remains moderately enlarged, measuring 24.9 centimeters in length, previously 26.0 centimeters. Again seen is mild fatty infiltration of the liver. There is no sign of any hepatic mass. There is increased moderate splenomegaly, the spleen now measuring 16.9 centimeters in length, previously 15.7 centimeters. There is no sign of any splenic mass. The pancreas and adrenals are normal in appearance. The kidneys are normal in appearance. Clips are again seen in the gall bladder fossa from cholecystectomy. There is no sign of biliary ductal dilatation. The abdominal aorta is normal in caliber with no sign of dilatation. There is no sign of retroperitoneal mass or adenopathy. There is a stable small hiatal hernia. The rest of the stomach, loops of small bowel, and colon in the abdomen are otherwise normal in appearance. In the pelvis, the appendix is normal in appearance with no sign of inflammatory process. The loops of small bowel, colon, and rectum in the pelvis are normal in appearance. The prostate is normal in appearance. During the interval, a suprapubic catheter has been placed. The urinary bladder is now collapsed and is otherwise normal in appearance. There is no sign of pelvic or inguinal mass or adenopathy. There is no sign of free air or free fluid in the abdomen or pelvis. There is increased mild linear atelectasis in the inferior lingula at the lung base. The lung bases are otherwise clear. There continues to be severe L4-5 and L5-S1 disc degenerative disease. There continues to be moderate L3-4 disc degenerative disease. IMPRESSION: CT of the abdomen shows increased moderate splenomegaly, the spleen now measuring 16.9 centimeters in length. Improved moderate hepatomegaly. Again seen is fatty infiltration of the liver. Again seen are changes of cholecystectomy with no sign of biliary ductal dilatation. CT of the pelvis shows interval placement of a suprapubic catheter. The urinary bladder is collapsed. Increased mild linear atelectasis in the inferior lingula at the lung base. Please note that all CT scans at this facility use dose modulation, iterative reconstruction, and/or weight-based dosing when appropriate to reduce radiation dose to as low as reasonably achievable. Dictated by Nicko Pederson MD @ 09/23/2022 1:12:56 AM (Electronically Signed)
--- NOTE | 2022-09-22 23:19 | ED.WEAKNESS ---
HPI - Weakness General Chief complaint: Weakness Stated complaint: Abdominal Pain Time Seen by Provider: 09/22/22 22:44 History of Present Illness HPI Narrative: 57-year-old man brought to the emergency department via EMS with concern of feeling lightheaded and abdominal pain. Feeling woozy or lightheaded for some time but worse over this last week. Abdominal pain is been present also for quite some time but increasing over this last week. Was seen in clinic with concerns of this left-sided abdominal pain. Does take regularly dosed morphine but it is not helping his pain. Over the last week has noticed regularly dark stools. This is something also that has been present historically. He does report but urine half ago an unremarkable colonoscopy in a polyp more remotely though. Notes his both his parents of colon cancer. Has been recently preferred to go to palliative care other psychiatric medications but would like some investigation and fluids here today. Couple days ago had an elevated temp ?fever? up to 99.9. This evening had a controlled fall at home for due to generalized weakness and lightheadedness. Had to call for help to get up. No dizziness. For pain has been increasing dosing of aspirin rotating with acetaminophen lately. Dark stools he said did start prior to increasing dosing Related Data Home Medications Medication Instructions Recorded Confirmed cyanocobalamin (vitamin B-12) 1,000 mcg IM Q4W 05/26/22 09/22/22 1,000 mcg/mL injection solution fluticasone propionate 50 2 spray intranasal DAILY 05/26/22 09/22/22 mcg/actuation nasal spray,suspension lamotrigine 200 mg tablet 200 mg PO HS 05/26/22 09/22/22 metronidazole 0.75 % topical cream 1 applic topical BID 05/26/22 09/22/22 morphine 30 mg immediate release 30 mg PO Q6H PRN 05/26/22 09/22/22 tablet nystatin 100,000 unit/gram topical 1 applic topical BID 05/26/22 09/22/22 cream pregabalin 75 mg capsule 75 mg PO BID 05/26/22 09/22/22 quetiapine 100 mg tablet 200 mg PO HS 05/26/22 09/22/22 sertraline 50 mg tablet 150 mg PO DAILY 05/26/22 09/22/22 tizanidine 2 mg tablet 2 - 4 mg PO Q8H PRN 05/26/22 09/22/22 trazodone 100 mg tablet 200 mg PO HS 05/26/22 09/22/22 ciprofloxacin 0.3 %-dexamethasone See Rx Instructions .Route .COMPLEX 05/27/22 09/22/22 0.1 % ear drops,suspension ondansetron 4 mg disintegrating 4 mg PO Q8H PRN 05/27/22 09/22/22 tablet Previous Rx's Medication Instructions Recorded amoxicillin 500 mg capsule 1,000 mg PO Q8H #30 caps 05/31/22 cephalexin 500 mg capsule 500 mg PO TID 7 days #21 caps 08/07/22 Allergies Allergy/AdvReac Type Severity Reaction Status Date / Time latex Allergy Verified 09/22/22 22:55 aspirin AdvReac Verified 09/22/22 22:55 codeine AdvReac Verified 09/22/22 22:55 Review of Systems Status of ROS: Reports: 10 or more systems reviewed and unremarkable except as noted in History and below [facility] Medical History Acute UTI Anemia Bipolar disorder Borderline personality disorder in adult Chronic idiopathic thrombocytopenia Chronic idiopathic thrombocytopenia Chronic pain Chronic pain syndrome CVA (cerebral vascular accident) Diabetes Fever History of deep venous thrombosis or pulmonary embolus History of suicide attempt Iron deficiency anemia following bariatric surgery Migraine Migraines Obesity RAPHAEL (obstructive sleep apnea) Pulmonary embolism Suprapubic catheter Surgical History Gastric bypass status for obesity History of cholecystectomy History of lumbar surgery History of total right knee replacement (TKR) S/P ACL repair Family History Other Chronic idiopathic thrombocytopenia Social History Smoking Status: Former smoker What tobacco products do you use: cigarettes Years smoked: 10 Smoking quit date/years: <= 15 years ago Do you use any of these nicotine containing products: None Second hand tobacco smoke exposure: No How often do you have a drink containing alcohol: 2-4 times a month How many standard drinks containing alcohol do you have on a typical day: 1 or 2 How often do you have six or more drinks on one occasion: Never AUDIT-C Alcohol total score: 2 Non-prescribed substance use: denies use Caffeine: Yes (coffee) service: No Exam Narrative: Exam Narrative: Pleasant. Very polite and appreciative. Seems little sleepy. Tracheostomy in place appears to be functioning well. Intermittent small cough clearing what I think is chronic mucus. Cranial nerves 2-12 to be intact. Oropharynx is sticky. Lungs appear to be clear other than link upper airway transmission/mucous congestion. Heart in a regular rhythm mildly elevated rate. Abdomen is obese soft. Diffusely tender but more so generally along the left side --here is very tender. Is difficult to palpate/discern due to obesity. No evidence of trauma or erythema on his skin. Striations noted. Lower extremities with mild pitting edema. I do return later for RACHAEL. See below. Const: Vital Signs, click to edit/add: Vital Signs - 24 hr 09/23/22 05:22 Pulse Rate [Left P ulse Oximeter] 82 Respiratory Rate 18 Blood Pressure [Ri ght Upper Arm] 113/57 L Pulse Oximetry 95 Oxygen Delivery Me thod Room Air Documenting provider has reviewed patient's vital signs: yes Course Vital Signs Vital signs: Initial Vital Signs Temperature 97.7 F 09/22/22 22:39 Temperature Source Temporal Artery Scan 09/22/22 22:39 Pulse Rate 92 09/22/22 22:39 Respiratory Rate 16 09/22/22 22:39 Blood Pressure 148/84 H 09/22/22 22:39 Blood Pressure Mean 105 09/22/22 22:39 Blood Pressure Position Semi-Fowlers 09/22/22 22:39 Pulse Oximetry 96 09/22/22 22:39 Oxygen Delivery Method 09/22/22 22:39 Vital Signs Temperature 97.7 F 09/22/22 22:39 Pulse Rate 92 09/22/22 22:39 Respiratory Rate 16 09/22/22 22:39 Blood Pressure 148/84 H 09/22/22 22:39 Pulse Oximetry 96 09/22/22 22:39 Oxygen Delivery Method 09/22/22 22:39 Temperature 97.7 F 09/22/22 22:39 Pulse Rate 82 09/23/22 05:22 Respiratory Rate 18 09/23/22 05:22 Blood Pressure 113/57 L 09/23/22 05:22 Pulse Oximetry 95 09/23/22 05:22 Oxygen Delivery Method 09/23/22 05:22 MDM - Weakness MDM Narrative Medical decision making narrative: RACHAEL positive for red stained liquid and indeed guaiac positive Was requesting something for pain. Ordered for for fentanyl. This did require re-dosing. He does take morphine daily. He acknowledges that lives in good deal of pain generally but tries to find other ways to distract himself. With the pain returning again a tried low-dose ketamine. He has received normal saline in the emergency department along with pantoprazole. Ketamine really seemed to help his pain a great deal. Lightheadedness also had generally improved. Sebastian he could return home to outpatient follow-up Initial hemoglobin was 8.3 which has continued to drift slowly down on my review of records. Recheck 4 hours later was unchanged. Possible infection in urine. I would wait for culture here though. I recommend repeat colonoscopy but it sounds that Mr. Perez is not particularly amenable to further cares in this regard. He should also use aspirin with caution. Medical Records Attestation: I reviewed the patient's medical records. Lab Data Attestation: I reviewed the patient's lab results. Labs: Lab Results 09/22/22 09/22/22 09/22/22 Range/Units 23:20 23:20 23:20 WBC 4.89 (4.50-11.00) K/uL RBC 3.95 L (4.30-5.90) m/uL Hgb 8.3 L (13.5-17.5) gm/dL Hct 28.5 L (37.0-53.0) % MCV 72 L (80-100) fL MCH 21 L (26-34) pg MCHC 29 L (32-36) gm/dL RDW Coeff of Veren[place] 19.0 H (11.5-15.5) % Plt Count 79 L (140-440) K/uL Neut % (Auto) 59.0 (42.0-72.0) % Lymph % (Auto) 24.1 (20-44) % [place] % (Auto) 10.4 (0.0-11.0) % Eos % (Auto) 5.1 (0.0-7.0) % Baso % (Auto) 0.6 (0.0-3.0) % Neut # (Auto) 2.88 (1.7-7.0) K/uL Lymph # (Auto) 1.18 (0.90-2.90) K/uL [place]y # (Auto) 0.50 (0.00-0.90) K/UL Eos # (Auto) 0.25 (0.00-0.50) K/uL Baso # (Auto) 0.03 (0.00-0.30) K/uL Diff Slide Review Acceptable Review (Acceptable) Sodium 137 (135-149) mmol/L Potassium 4.3 (3.6-5.1) mmol/L Chloride 109 (96-114) mmol/L Carbon Dioxide 27 (20-32) mmol/L BUN 11 (7-30) mg/dL Creatinine 0.6 (0.5-1.5) mg/dL Estimated Creat Clear 150.89 Estimated GFR 113 ml/min Glucose 131 H (60-115) mg/dL Calcium 8.2 L (8.4-10.6) mg/dL Magnesium 1.9 (1.5-2.6) mg/dL Total Bilirubin 0.4 (0.1-1.5) mg/dL Direct Bilirubin 0.3 (0.0-0.5) mg/dL AST 29 (12-35) U/L ALT 21 (4-50) U/L Alkaline Phosphatase 155 H (40-150) U/L Troponin I (0.01-0.04) ng/mL C-Reactive Protein 0.7 (0.5-1.0) mg/dL NT-Pro-B Natriuret Pep < 20 pg/mL Total Protein 6.5 (6.0-8.3) g/dL Albumin 3.2 L (3.3-5.0) g/dL Lipase 35 (23-300) U/L Urine Color (Yellow) Urine Appearance (Clear) Urine pH (5.0-8.5) Ur Specific [place] (1.000-1.030) Urine Protein (Negative) Urine Glucose (UA) (Negative) Urine Ketones (Negative) Urine Blood (Negative) Urine Nitrite (Negative) Urine Bilirubin (Negative) Urine Urobilinogen (0.2-1.0) Ur Leukocyte Esterase (Negative) Urine RBC (0-2) Urine WBC (0-5) Ur Squamous Epith Cells (None-Few) Urine Bacteria (None) Urine Yeast (None) Ethyl Alcohol < 0.01 L (0.01-0.03) % 09/22/22 09/22/22 09/23/22 Range/Units 23:20 23:55 03:47 WBC 4.47 L (4.50-11.00) K/uL RBC 3.90 L (4.30-5.90) m/uL Hgb 8.3 L (13.5-17.5) gm/dL Hct 28.1 L (37.0-53.0) % MCV 72 L (80-100) fL MCH 21 L (26-34) pg MCHC 30 L (32-36) gm/dL RDW Coeff of [place] 19.1 H (11.5-15.5) % Plt Count 101 L (140-440) K/uL Neut % (Auto) 59.7 (42.0-72.0) % Lymph % (Auto) 22.4 (20-44) % [place]y % (Auto) 11.9 H (0.0-11.0) % Eos % (Auto) 5.6 (0.0-7.0) % Baso % (Auto) 0.4 (0.0-3.0) % Neut # (Auto) 2.70 (1.7-7.0) K/uL Lymph # (Auto) 1.00 (0.90-2.90) K/uL [place] # (Auto) 0.50 (0.00-0.90) K/UL Eos # (Auto) 0.30 (0.00-0.50) K/uL Baso # (Auto) 0.00 (0.00-0.30) K/uL Diff Slide Review (Acceptable) Sodium (135-149) mmol/L Potassium (3.6-5.1) mmol/L Chloride (96-114) mmol/L Carbon Dioxide (20-32) mmol/L BUN (7-30) mg/dL Creatinine (0.5-1.5) mg/dL Estimated Creat Clear Estimated GFR ml/min Glucose (60-115) mg/dL Calcium (8.4-10.6) mg/dL Magnesium (1.5-2.6) mg/dL Total Bilirubin (0.1-1.5) mg/dL Direct Bilirubin (0.0-0.5) mg/dL AST (12-35) U/L ALT (4-50) U/L Alkaline Phosphatase (40-150) U/L Troponin I < 0.01 L (0.01-0.04) ng/mL C-Reactive Protein (0.5-1.0) mg/dL NT-Pro-B Natriuret Pep pg/mL Total Protein (6.0-8.3) g/dL Albumin (3.3-5.0) g/dL Lipase (23-300) U/L Urine Color Yellow (Yellow) Urine Appearance Clear (Clear) Urine pH 6.5 (5.0-8.5) Ur Specific [place] 1.015 (1.000-1.030) Urine Protein Negative (Negative) Urine Glucose (UA) Negative (Negative) Urine Ketones Negative (Negative) Urine Blood Negative (Negative) Urine Nitrite Negative (Negative) Urine Bilirubin Negative (Negative) Urine Urobilinogen 1.0 (0.2-1.0) Ur Leukocyte Esterase 1+ A (Negative) Urine RBC 0-2 (0-2) Urine WBC 5-10 A (0-5) Ur Squamous Epith Cells None (None-Few) Urine Bacteria None (None) Urine Yeast Moderate A (None) Ethyl Alcohol (0.01-0.03) % ECG Data Attestation: I personally reviewed and interpreted this ECG as follows: (Normal sinus rhythm rate of 82) Discharge Plan Discharge Clinical Impression: Lower GI bleed, Abdominal pain Patient Disposition: Home, Self-Care Condition: Improved Additional Instructions: I am glad you are feeling better. Stay well hydrated. Return for increasing bleeding, uncontrolled pain, worsening lightheadedness, chest pain. I would follow up about a week to recheck labs; in particular hemoglobin. A urine culture is pending here. If you change your mind, omeprazole is available [id number]. I would consider taking 40 mg daily or 20 mg 2 times daily, either for 2 weeks. Prescriptions: No Action cephalexin 500 mg capsule 500 mg PO TID 7 Days Qty: 21 0RF nystatin 100,000 unit/gram cream 1 applic TOPICAL BID Label Comments: APPLY TO ABDOMINAL SKIN FOLDS TWICE DAILY UNTIL RESOLVED. THEN MAY USE 1-2 TIMES A WEEK FOR PREVENTION morphine 30 mg tablet 30 mg PO Q6H PRN Label Comments: TAKE ONE TABLET BY MOUTH EVERY SIX HOURS NEEDED, MAX 3/DAY. SHOULD LAST AT LEAST 30 DAYS quetiapine 100 mg tablet 200 mg PO HS Label Comments: TAKE 2 TABLETS (200 MG) BY MOUTH AT BEDTIME. sertraline 50 mg tablet 150 mg PO DAILY Label Comments: TAKE 2 TABLETS (100 MG) BY MOUTH ONCE DAILY. lamotrigine 200 mg tablet 200 mg PO HS Label Comments: TAKE 1 TABLET (200 MG) BY MOUTH AT BEDTIME. metronidazole 0.75 % cream 1 applic TOPICAL BID Label Comments: APPLY TOPICALLY TO AFFECTED AREA(S) 2 TIMES DAILY. FOR FACE ROSACEA tizanidine 2 mg tablet 2 - 4 mg PO Q8H PRN Label Comments: TAKE 1-2 TABLETS (2-4 MG) BY MOUTH EVERY 8 HOURS IF NEEDED. pregabalin 75 mg capsule 75 mg PO BID Label Comments: TAKE 1 CAPSULE (75 MG) BY MOUTH 2 TIMES DAILY. cyanocobalamin (vitamin B-12) 1,000 mcg/mL solution 1,000 mcg IM Q4W fluticasone propionate 50 mcg/actuation spray,suspension 2 spray INTRANASAL DAILY Label Comments: INHALE 2 SPRAYS TO BOTH NOSTRILS ONCE DAILY. trazodone 100 mg tablet 200 mg PO HS Label Comments: TAKE 2 TABLETS (200 MG) BY MOUTH AT BEDTIME IF NEEDED FOR SLEEP. ciprofloxacin-dexamethasone 0.3-0.1 % drops,suspension See Rx Instructions .ROUTE .COMPLEX Label Comments: INSTILL 4 DROPS INTO THE TRACHE SITE TWICE DAILY FOR 7 DAYS Rx Instructions: 4 DROPS TO TRACH SITE TWICE DAILY FOR 7 DAYS NEEDED; ondansetron 4 mg tablet,disintegrating 4 mg PO Q8H PRN Label Comments: PLACE 1 TABLET ON THE TONGUE EVERY 8 HOURS IF NEEDED FOR NAUSEA AND VOMITING. amoxicillin 500 mg capsule 1,000 mg PO Q8H Qty: 30 0RF Follow Up/Referrals: Oliva Delong DO [Primary Care Provider] - Stand Alone Forms: [email or web address] Info Instructions Discharge Comment: Via EMS
[2022-09-22] MEDS: 0.9 % SODIUM CHLORIDE 1000 ml 1,000 ML IV (23:21)
[2022-09-22] MEDS: fentaNYL 100 MCG/2 ML inj 50 MCG IVP (23:22)
[2022-09-22 23:32] LABS: Basophils Absolute Auto 0.03 K/uL (0.00-0.30); Basophils Percent Auto 0.6 % (0.0-3.0); Eosinophils Absolute Auto 0.25 K/uL (0.00-0.50); Eosinophils Percent Auto 5.1 % (0.0-7.0); Hematocrit 28.5 % (37.0-53.0); Hemoglobin* 8.3 gm/dL (13.5-17.5); Immature Granulocytes Abs Auto 0.04 K/uL (0.00-0.30); Immature Granulocytes Pct Auto 0.8 %; Lymphocytes Absolute Auto 1.18 K/uL (0.90-2.90); Lymphocytes Percent Auto 24.1 % (20-44); Mean Corpuscular HGB Conc 29 gm/dL (32-36); Mean Corpuscular Hemoglobin 21 pg (26-34); Mean Corpuscular Volume 72 fL (80-100); Monocytes Percent Auto 10.4 % (0.0-11.0); Neutrophils Absolute Auto 2.88 K/uL (1.7-7.0); Platelet Count* 79 K/uL (140-440); Red Blood Count 3.95 m/uL (4.30-5.90); White Blood Count* 4.89 K/uL (4.50-11.00)
[2022-09-22 23:34] LABS: Slide Review Reflex Yes
--- NOTE | 2022-09-22 23:44 | ED.NURSE ---
Wright clamped 2345.
[2022-09-22 23:45] LABS: Chloride* 109 mmol/L (96-114); Sodium* 137 mmol/L (135-149)
[2022-09-22 23:46] LABS: Potassium* 4.3 mmol/L (3.6-5.1)
[2022-09-22 23:48] LABS: Creatinine* 0.6 mg/dL (0.5-1.5); Est. Creatinine Clearance* 150.89; Estimated Glomerular Filt Rate 113 ml/min
[2022-09-22 23:49] LABS: Blood Urea Nitrogen* 11 mg/dL (7-30); Calcium* 8.2 mg/dL (8.4-10.6); Carbon Dioxide* 27 mmol/L (20-32); Glucose* 131 mg/dL (60-115)
[2022-09-22 23:52] LABS: C Reactive Protein* 0.7 mg/dL (0.5-1.0)
[2022-09-23] VITALS: BP 152/78; PULSE 81; RESP 18; O2SAT 93
[2022-09-23 00:01] LABS: Troponin I* < 0.01 ng/mL (0.01-0.04)
--- NOTE | 2022-09-23 00:01 | ED.NURSE ---
Urine sample collected from catheter.
[2022-09-23 00:08] LABS: Alanine Aminotransferase* 21 U/L (4-50); Albumin* 3.2 g/dL (3.3-5.0); Alkaline Phosphatase* 155 U/L (40-150); Aspartate Amino Transferase* 29 U/L (12-35); Bilirubin Direct* 0.3 mg/dL (0.0-0.5); Bilirubin Total* 0.4 mg/dL (0.1-1.5); Magnesium* 1.9 mg/dL (1.5-2.6); Total Protein* 6.5 g/dL (6.0-8.3)
[2022-09-23 00:09] LABS: Ethanol* < 0.01 % (0.01-0.03); Lipase* 35 U/L (23-300)
[2022-09-23 00:14] LABS: NT Pro B Type NatriureticPept* < 20 pg/mL
[2022-09-23 00:18] LABS: Appearance Urine Clear (Clear); Color Urine Yellow (Yellow)
[2022-09-23 00:19] LABS: Bilirubin Urine Negative (Negative); Blood Urine Negative (Negative); Glucose Urine Negative (Negative); Ketones Urine Negative (Negative); Leukocyte Esterase Urine 1+ (Negative); Nitrite Urine Negative (Negative); Protein Urine Negative (Negative); RBC Urine 0-2 (0-2); Specific Gravity Urine 1.015 (1.000-1.030); pH Urine 6.5 (5.0-8.5)
[2022-09-23 00:23] LABS: Slide Review Acceptable Review (Acceptable)
[2022-09-23] MEDS: fentaNYL 100 MCG/2 ML inj 50 MCG IVP (00:31)
[2022-09-23 01:23] VITALS: BP 155/85; PULSE 84; RESP 16; O2SAT 96
[2022-09-23] MEDS: PANTOPRAZOLE SODIUM 40 MG INJ IVP (03:19)
[2022-09-23] MEDS: KETAMINE HCL 20 MG in 0.9 % SODIUM CHLORIDE 100 ml 100 ML 300.6 MG IVPB (03:20)
[2022-09-23 03:32] VITALS: BP 115/87; PULSE 80; RESP 18; O2SAT 100
[2022-09-23 03:50] LABS: Basophils Percent Auto 0.4 % (0.0-3.0); Eosinophils Percent Auto 5.6 % (0.0-7.0); Hematocrit 28.1 % (37.0-53.0); Hemoglobin* 8.3 gm/dL (13.5-17.5); Lymphocytes Percent Auto 22.4 % (20-44); Mean Corpuscular HGB Conc 30 gm/dL (32-36); Mean Corpuscular Hemoglobin 21 pg (26-34); Mean Corpuscular Volume 72 fL (80-100); Monocytes Percent Auto 11.9 % (0.0-11.0); Neutrophils Percent Auto 59.7 % (42.0-72.0); Platelet Count* 101 K/uL (140-440); RDW Coefficient of Variation % 19.1 % (11.5-15.5); White Blood Count* 4.47 K/uL (4.50-11.00)
[2022-09-23 03:51] LABS: Slide Review Reflex No
[2022-09-23 05:22] VITALS: BP 113/57; PULSE 82; RESP 18; O2SAT 95
== END 2022-09-23 06:56 | disposition home or self-care (01) ==
PROVIDERS: Emergency Provider Family Medicine; PCP Family Medicine
DX: K92.2 Gastrointestinal hemorrhage, unspecified (principal)
CPT/HCPCS: 36415; 74177; 80048; 80076; 81001; 82077; 83690; 83735; 83880; 84484; 85025; 86140; 87086; 93005; 96365; 96375; 99284; 99285; C9113; J3010; J3490; J7030; Q9967

== ENCOUNTER 2022-09-23 06:54 | Outpatient (CLI) | payer MEDICARE, MEDICAID, SELFPAY | END 2022-09-23 06:55 | disposition home or self-care (01) | PROVIDERS: PCP Family Medicine; Visit Provider Family Medicine | DX: Z99.3 Dependence on wheelchair (principal) | CPT/HCPCS: A0425; A0428 ==

== ENCOUNTER 2022-09-27 19:27 | Outpatient (CLI) | payer MEDICARE, MEDICAID, SELFPAY | END 2022-09-27 19:28 | disposition home or self-care (01) | LOC: AMB 09-28 12:51 | PROVIDERS: PCP Family Medicine; Visit Provider Emergency Medicine Emergency Medical Services | DX: R07.89 Other chest pain (principal) | CPT/HCPCS: A0425; A0427 ==

== ENCOUNTER 2022-09-27 19:54 | Emergency (ER) | payer MEDICARE, MEDICAID, SELFPAY ==
[2022-09-27] VITALS (10 sets, daily range): BP systolic 149–182; BP diastolic 89–96; PULSE 88–94; RESP 22; TEMP 36.7; O2SAT 95–98
--- NOTE | 2022-09-27 21:21 | ED_ITS ---
HPI - Chest Pain General Chief Complaint: Chest Pain Stated Complaint: Chest Pain Time Seen by Provider: 09/27/22 21:07 History of Present Illness HPI narrative: This 57-year-old male comes in reporting chest pain that began this afternoon about 7 hours prior to arrival. He states that the pain occurs across his chest. He states that it is worse at times when taking a deep breath. He reports that he had some nausea this morning. He is morbidly obese and states that these symptoms occurred wild not doing anything exertional. He does report some lightheadedness at times over the past week or so. He does not report any diaphoresis or shortness of breath. He states that he saw his primary physician this morning and was prescribe something for heartburn. He does report some occasions of blood in his stool. This is not a new occurrence for him. Related Data Home Medications Medication Instructions Recorded Confirmed cyanocobalamin (vitamin B-12) 1,000 mcg IM Q4W 05/26/22 09/22/22 1,000 mcg/mL injection solution fluticasone propionate 50 2 spray intranasal DAILY 05/26/22 09/22/22 mcg/actuation nasal spray,suspension lamotrigine 200 mg tablet 200 mg PO HS 05/26/22 09/22/22 metronidazole 0.75 % topical cream 1 applic topical BID 05/26/22 09/22/22 morphine 30 mg immediate release 30 mg PO Q6H PRN 05/26/22 09/22/22 tablet nystatin 100,000 unit/gram topical 1 applic topical BID 05/26/22 09/22/22 cream pregabalin 75 mg capsule 75 mg PO BID 05/26/22 09/22/22 quetiapine 100 mg tablet 200 mg PO HS 05/26/22 09/22/22 sertraline 50 mg tablet 150 mg PO DAILY 05/26/22 09/22/22 tizanidine 2 mg tablet 2 - 4 mg PO Q8H PRN 05/26/22 09/22/22 trazodone 100 mg tablet 200 mg PO HS 05/26/22 09/22/22 ciprofloxacin 0.3 %-dexamethasone See Rx Instructions .Route .COMPLEX 05/27/22 09/22/22 0.1 % ear drops,suspension ondansetron 4 mg disintegrating 4 mg PO Q8H PRN 05/27/22 09/22/22 tablet Previous Rx's Medication Instructions Recorded amoxicillin 500 mg capsule 1,000 mg PO Q8H #30 caps 05/31/22 cephalexin 500 mg capsule 500 mg PO TID 7 days #21 caps 08/07/22 Allergies Allergy/AdvReac Type Severity Reaction Status Date / Time latex Allergy Verified 09/22/22 22:55 aspirin AdvReac Verified 09/22/22 22:55 codeine AdvReac Verified 09/22/22 22:55 Review of Systems Status of ROS Reports: 10 or more systems reviewed and unremarkable except as noted in History and below Narrative Constitutional: No fevers, no weight gain or loss. Eyes: No discharge. No vision changes. HENT: No congestion, no sore throat, no ear pain. Cardiovascular: No palpitations. Chest discomfort as described above. Respiratory: No shortness of breath, no wheezes, no cough. Gastrointestinal: No abdominal pain, no vomiting, no diarrhea. Genitourinary: No dysuria, no hematuria. Musculoskeletal: Normal range of motion. Skin: No rashes, no pruritis. Neurological: No dizziness, weakness, sensory change, speech change. Endo/Heme/Allergies: No bruising or bleeding. No polydipsia. Pysch: no suicidality, no anxiety, no insomnia. All other systems reviewed and are negative. [facility] Medical History Acute UTI Anemia Bipolar disorder Borderline personality disorder in adult Chronic idiopathic thrombocytopenia Chronic idiopathic thrombocytopenia Chronic pain Chronic pain syndrome CVA (cerebral vascular accident) Diabetes Fever History of deep venous thrombosis or pulmonary embolus History of suicide attempt Iron deficiency anemia following bariatric surgery Migraine Migraines Obesity RAPHAEL (obstructive sleep apnea) Pulmonary embolism Suprapubic catheter Surgical History Gastric bypass status for obesity History of cholecystectomy History of lumbar surgery History of total right knee replacement (TKR) S/P ACL repair Family History Other Chronic idiopathic thrombocytopenia Social History Smoking Status: Former smoker What tobacco products do you use: cigarettes Years smoked: 10 Smoking quit date/years: <= 15 years ago Do you use any of these nicotine containing products: None Second hand tobacco smoke exposure: No How often do you have a drink containing alcohol: 2-4 times a month How many standard drinks containing alcohol do you have on a typical day: 1 or 2 How often do you have six or more drinks on one occasion: Never AUDIT-C Alcohol total score: 2 Non-prescribed substance use: denies use Caffeine: Yes (coffee) service: No Exam Narrative Exam Narrative: Constitutional: Well-developed, well-nourished, no acute distress. HEENT: Normocephalic, atraumatic. Neck: Normal range of motion. Nontender. Supple. Heart: Regular. No murmurs. Normal rate. Intact distal pulses. Lungs: Clear to auscultation. No wheezes, rhonchi, or rales. Chest discomfort is not reproduced when palpating across his chest but does present with some discomfort when taking a deep breath. Abdomen: Normal bowel sounds. Nontender. No rebound tenderness. Genitalia: Deferred. Back: No midline tenderness. Normal range of motion. Extremities: Normal range of motion. No injury. Skin: Intact. No rash. Warm. No erythema or pallor. Neurologic: No altered sensation. No weakness. Alert and oriented. Psychiatric: No suicidality. No anxiety or depression. No insomnia. Nursing notes and vitals signs are reviewed. Const Vital Signs, click to edit/add: Vital Signs - 24 hr 09/27/22 20:12 Temperature 98.1 F Respiratory Rate 22 Blood Pressure [Right Upper Arm] 182/95 H Pulse Oximetry 98 Oxygen Delivery Method Room Air Course Vital Signs Vital signs: Initial Vital Signs Temperature 98.1 F 09/27/22 20:12 Temperature Source Temporal Artery Scan 09/27/22 20:12 Respiratory Rate 22 09/27/22 20:12 Blood Pressure 182/95 H 09/27/22 20:12 Blood Pressure Mean 124 09/27/22 20:12 Blood Pressure Position Sitting 09/27/22 20:12 Pulse Oximetry 98 09/27/22 20:12 Oxygen Delivery Method 09/27/22 20:12 Vital Signs Temperature 98.1 F 09/27/22 20:12 Respiratory Rate 22 09/27/22 20:12 Blood Pressure 182/95 H 09/27/22 20:12 Pulse Oximetry 98 09/27/22 20:12 Oxygen Delivery Method 09/27/22 20:12 Temperature 98.1 F 09/27/22 20:12 Respiratory Rate 22 09/27/22 20:12 Blood Pressure 182/95 H 09/27/22 20:12 Pulse Oximetry 98 09/27/22 20:12 Oxygen Delivery Method 09/27/22 20:12 MDM - Chest Pain MDM Narrative Medical decision making narrative: This patient comes in reporting chest pain but states that he also has intermittent streaking of blood in his stool. His EKG and troponin returned in normal range. Lab results do show a hemoglobin is trending downward. Today his hemoglobin is 7.6. About a week ago he was at 8.3. About 6 weeks ago he was at 9.6 and 4 months ago at 10.3. The patient stated to the nurse that she just wants to go home. He did receive an IV dose of Toradol which did not bring much relief. He is not in severe a or acute pain. He does have chronic pain and states that he has the largest dose of morphine that can be prescribed for him at home. He states he wants to go home and continue his current plans. I did indicate that his hemoglobin is trending downward. He states that he is aware of this. He has had colonoscopies in the past. He declined any further treatment today and actually seemed reassured with lab results. He states that he is on palliative care and does not wish to have any further treatment. Lab Data Labs: Lab Results 09/27/22 09/27/22 09/27/22 Range/Units 20:30 20:30 21:18 WBC 3.90 L (4.50-11.00) K/uL RBC 3.65 L (4.30-5.90) m/uL Hgb 7.6 L* (13.5-17.5) gm/dL Hct 26.2 L (37.0-53.0) % MCV 72 L (80-100) fL MCH 21 L (26-34) pg MCHC 29 L (32-36) gm/dL RDW Coeff of Verenice 19.2 H (11.5-15.5) % Plt Count 67 L (140-440) K/uL Neut % (Auto) 62.2 (42.0-72.0) % Lymph % (Auto) 22.1 (20-44) % Roane % (Auto) 10.3 (0.0-11.0) % Eos % (Auto) 4.6 (0.0-7.0) % Baso % (Auto) 0.8 (0.0-3.0) % Neut # (Auto) 2.40 (1.7-7.0) K/uL Lymph # (Auto) 0.90 (0.90-2.90) K/uL Ro[place] # (Auto) 0.40 (0.00-0.90) K/UL Eos # (Auto) 0.20 (0.00-0.50) K/uL Baso # (Auto) 0.00 (0.00-0.30) K/uL Sodium 139 (135-149) mmol/L Potassium 3.4 L (3.6-5.1) mmol/L Chloride 113 (96-114) mmol/L Carbon Dioxide 23 (20-32) mmol/L BUN 7 (7-30) mg/dL Creatinine 0.7 (0.5-1.5) mg/dL Estimated GFR 108 ml/min Glucose 125 H (60-115) mg/dL Calcium 7.8 L (8.4-10.6) mg/dL POC Troponin I 0.01 (0.01-0.04) ng/ml ECG Data Attestation: I personally reviewed and interpreted this ECG as follows: Interpretation: Normal sinus rhythm with occasional PVCs. Rate is 93 beats per minute. There are no ST or T-wave abnormalities. Discharge Plan Discharge Clinical Impression: Anemia, Atypical chest pain Patient Disposition: Home, Self-Care Condition: Stable Additional Instructions: Continue current plans. Follow up with MD to closely follow the hemoglobin which is trending downward. Return if worsening. Prescriptions: No Action cephalexin 500 mg capsule 500 mg PO TID 7 Days Qty: 21 0RF nystatin 100,000 unit/gram cream 1 applic TOPICAL BID Label Comments: APPLY TO ABDOMINAL SKIN FOLDS TWICE DAILY UNTIL RESOLVED. THEN MAY USE 1-2 TIMES A WEEK FOR PREVENTION morphine 30 mg tablet 30 mg PO Q6H PRN Label Comments: TAKE ONE TABLET BY MOUTH EVERY SIX HOURS NEEDED, MAX 3/DAY. SHOULD LAST AT LEAST 30 DAYS quetiapine 100 mg tablet 200 mg PO HS Label Comments: TAKE 2 TABLETS (200 MG) BY MOUTH AT BEDTIME. sertraline 50 mg tablet 150 mg PO DAILY Label Comments: TAKE 2 TABLETS (100 MG) BY MOUTH ONCE DAILY. lamotrigine 200 mg tablet 200 mg PO HS Label Comments: TAKE 1 TABLET (200 MG) BY MOUTH AT BEDTIME. metronidazole 0.75 % cream 1 applic TOPICAL BID Label Comments: APPLY TOPICALLY TO AFFECTED AREA(S) 2 TIMES DAILY. FOR FACE ROSACEA tizanidine 2 mg tablet 2 - 4 mg PO Q8H PRN Label Comments: TAKE 1-2 TABLETS (2-4 MG) BY MOUTH EVERY 8 HOURS IF NEEDED. pregabalin 75 mg capsule 75 mg PO BID Label Comments: TAKE 1 CAPSULE (75 MG) BY MOUTH 2 TIMES DAILY. cyanocobalamin (vitamin B-12) 1,000 mcg/mL solution 1,000 mcg IM Q4W fluticasone propionate 50 mcg/actuation spray,suspension 2 spray INTRANASAL DAILY Label Comments: INHALE 2 SPRAYS TO BOTH NOSTRILS ONCE DAILY. trazodone 100 mg tablet 200 mg PO HS Label Comments: TAKE 2 TABLETS (200 MG) BY MOUTH AT BEDTIME IF NEEDED FOR SLEEP. ciprofloxacin-dexamethasone 0.3-0.1 % drops,suspension See Rx Instructions .ROUTE .COMPLEX Label Comments: INSTILL 4 DROPS INTO THE TRACHE SITE TWICE DAILY FOR 7 DAYS Rx Instructions: 4 DROPS TO TRACH SITE TWICE DAILY FOR 7 DAYS NEEDED; ondansetron 4 mg tablet,disintegrating 4 mg PO Q8H PRN Label Comments: PLACE 1 TABLET ON THE TONGUE EVERY 8 HOURS IF NEEDED FOR NAUSEA AND VOMITING. amoxicillin 500 mg capsule 1,000 mg PO Q8H Qty: 30 0RF Follow Up/Referrals: Oliva Delong DO [Primary Care Provider] - Stand Alone Forms: [facility] Info Instructions
[2022-09-27] MEDS: ONDANSETRON 2 MG/ML inj 4 MG IVP (21:37)
[2022-09-27] MEDS: KETOROLAC 30 MG/ML inj IVP (21:37)
[2022-09-27 21:38] LABS: Basophils Percent Auto 0.8 % (0.0-3.0); Eosinophils Percent Auto 4.6 % (0.0-7.0); Hematocrit 26.2 % (37.0-53.0); Lymphocytes Percent Auto 22.1 % (20-44); Mean Corpuscular HGB Conc 29 gm/dL (32-36); Mean Corpuscular Hemoglobin 21 pg (26-34); Mean Corpuscular Volume 72 fL (80-100); Monocytes Percent Auto 10.3 % (0.0-11.0); Neutrophils Percent Auto 62.2 % (42.0-72.0); Platelet Count* 67 K/uL (140-440); RDW Coefficient of Variation % 19.2 % (11.5-15.5); Red Blood Count 3.65 m/uL (4.30-5.90)
[2022-09-27 21:39] LABS: Hemoglobin* 7.6 gm/dL (13.5-17.5); Slide Review Reflex No
[2022-09-27 21:40] LABS: Troponin, Point-of-Care* 0.01 ng/ml (0.01-0.04)
--- NOTE | 2022-09-27 21:41 | ED.NURSE ---
Call from lab for critical result: hemoglobin 7.6. and RN updated.
[2022-09-27 21:44] LABS: Chloride* 113 mmol/L (96-114); Potassium* 3.4 mmol/L (3.6-5.1); Sodium* 139 mmol/L (135-149)
[2022-09-27 21:46] LABS: Creatinine* 0.7 mg/dL (0.5-1.5); Estimated Glomerular Filt Rate 108 ml/min
[2022-09-27 21:47] LABS: Blood Urea Nitrogen* 7 mg/dL (7-30); Calcium* 7.8 mg/dL (8.4-10.6); Carbon Dioxide* 23 mmol/L (20-32); Glucose* 125 mg/dL (60-115)
--- NOTE | 2022-09-27 22:30 | ED.NURSE ---
Pt c/o pain. MD updated.
== END 2022-09-27 23:30 | disposition home or self-care (01) ==
PROVIDERS: Emergency Provider Emergency Medicine Emergency Medical Services; PCP Family Medicine
DX: R07.9 Chest pain, unspecified (principal); D64.9 Anemia, unspecified
CPT/HCPCS: 36415; 80048; 84484; 85025; 93005; 96374; 96375; 99284; J1885; J2405

== ENCOUNTER 2022-09-27 23:41 | Outpatient (CLI) | payer MEDICARE, MEDICAID, SELFPAY | END 2022-09-27 23:42 | disposition home or self-care (01) | LOC: AMB 09-28 14:28 | PROVIDERS: PCP Family Medicine; Visit Provider Emergency Medicine Emergency Medical Services | DX: Z99.3 Dependence on wheelchair (principal) | CPT/HCPCS: A0425; A0428 ==

== ENCOUNTER 2022-10-11 16:38 | Outpatient (CLI) | payer MEDICARE, MEDICAID, SELFPAY | END 2022-10-11 16:39 | disposition home or self-care (01) | LOC: AMB 10-24 10:10 | PROVIDERS: PCP Family Medicine; Visit Provider Family Medicine | DX: K92.0 Hematemesis (principal); R53.1 Weakness | CPT/HCPCS: A0425; A0427 ==